=== PATIENT | male | born 1960 | race Caucasian/White ===

== ENCOUNTER → 2017-12-19 09:53 | Outpatient (CLI) | payer OTHER, SELFPAY ==
[2017-12-19 12:26] LABS: ALB/GLOB Ratio 1.2 RATIO (0.9-2.4); AST(SGOT) 37 U/L (15-37); Alanine Aminotransfer ALT/SGPT 63 U/L (16-61); Alkaline Phosphatase 70 U/L (45-117); Anion Gap 8 (5-15); BUN 14 mg/dL (7-18); BUN/Creat Ratio 16.3 RATIO (10-20); Calcium,Total 8.7 mg/dL (8.5-10.1); Chloride 104 mmol/L (98-107); Cholesterol 196 mg/dL (200); Creatinine, Serum 0.86 mg/dL (0.70-1.30); EST Glomerular Filtration Rate 97 mL/min (>60); Est Glom Filt Rate - Afr Amer 117 mL/min (>60); Globulin 3.4 g/dL (2.2-4.2); Glucose 89 mg/dL (74-106); High Density Lipoprotein 49 mg/dL; Potassium 3.8 mmol/L (3.5-5.1); Protein, Total 7.4 g/dL (6.4-8.2); Sodium Level 139 mmol/L (136-145); Thyroid Stim Hormone (TSH) 2.94 uIU/mL (0.358-3.74); Triglycerides 94 mg/dL; Very Low Density Lipoprotein 19 mg/dL (5-40)
== END ==
PROVIDERS: Family Provider Family Medicine; PCP Family Medicine; Visit Provider Family Medicine
DX: I10 Essential (primary) hypertension (principal); E03.9 Hypothyroidism, unspecified
CPT/HCPCS: 36415; 80053; 80061; 84443

== ENCOUNTER → 2018-05-05 12:32 | Outpatient (CLI) | payer OTHER, SELFPAY ==
--- NOTE | 2018-05-05 12:39 | RAD_ITS ---
STUDY: X-RAY - PELVIS AND RIGHT HIP REASON FOR EXAM: Male, 58 years old. Right hip pain. No known injury. TECHNIQUE: Radiological exam, hip, unilateral, with pelvis when performed; 2 or 3 views. COMPARISON: None. FINDINGS: There is a non-specific bowel gas pattern. Normal visualized soft tissue structures. Degenerative arthroses suggested the lower most lumbar facet articulations. There is narrowing with cortical sclerosis of the bilateral sacroiliac joints, consistent with degenerative osteoarthritic changes. Mild cortical and enthesophytes of the lateral iliac wings. Normal visualized sacrum. Normal bilateral superior and inferior pubic rami. Normal pubic symphysis. Normal bilateral ischial tuberosities. Normal visualized femoral head. There is osteoarthritic spur formation of the acetabular rim. Normal hip joint. RAD/Hip 2-3 Views with Pelvis IMPRESSION: 1. Degenerative spurring of the lateral right acetabular rim. 2. Degenerative changes in the lower lumbar facet joints and sacroiliac joints. Electronically Signed: Marek Arthur MD at 19:41 EDT , Service support ,
== END ==
PROVIDERS: Family Provider Family Medicine; PCP Family Medicine; Visit Provider Family Medicine
DX: M25.551 Pain in right hip (principal)
CPT/HCPCS: 73502

== ENCOUNTER 2018-05-20 15:49 | Outpatient (RCR) | payer OTHER, SELFPAY ==
--- NOTE | 2018-05-20 17:15 | HP.PTEVAL_ITS ---
Patient's Visit Information ANTONIO MCKNIGTH is a 58 year old M referred to Physical Therapy by Alexis Arteaga with a diagnosis of RIGHT HIP PAIN. Date of Evaluation: 05/20/18 Physical Therapist: Antonio Andrea, PT, - Visit Plan Frequency: 2x /Week Duration: 3 Weeks Plan: STRETCHING HIP,STRENGTHENING HIP ,MODALITIES. PATIENT WILL TRY EX'S ON OWM FOR MONTH - Subjective Subjective: This 58 y/o male presnets to physical therapy with right hip pain for 2 months. Intially,symptoms intermmitant but currently more constant.Desrcibed ache then sharp stabbing pain with walking.standing affecting [employer]'S job demands.Location loacted lateral hip hip. Dr gauthier xrays showed bone spurs. Patient can sleep at night. Pain is affected from squatting/ lifting. Denies parathesia/tingling. VOCATION: [employer]. SOCAIL: - Pain Right Hip Pain Intensity (Out of 10): 3 Pain Intensity Range: 10 - Objective POSTURE: WFL. GAIT: normal ken. NEURO: denies parathesia/tingling , intact. AROM: hip flexion 115 degrees, abd 45 degrees ,ER 50 ,IR 30 degrees. FLEXABLITY: hams min ,piriformis. MMT: quads/ham 4/5 ,hip flexion 4/5,hip abd 4 -/5 pain - Special Tests R Hip Scour: Negative R Hip Quadrant - Intraarticular Pathology: Negative R Hip GABI - Intraarticular Pathology: Positive R Hip Impingement Provocation - Labrum: Negative R Hip Trendelenberg - Glut Medius: Negative R Hip Linda - IT Band: Negative - Goals Goal 1:: Independant with HEP Goal Time Frame: 2-4 Weeks Goal 2:: Decrease hip pain by 50% with functional activities and job demands Goal Time Frame: 2-4 Weeks Goal 3:: Patient improve right glut medius strength 4/5 with no pain Goal Time Frame: 2-4 Weeks Goal 4:: Patient be able to perform ADL'S and job demands with no limitations - Rehabilitation Potential Physical Therapy Diagnosis: This patient has right hip pain with weakness of right glut medius with pain thus benifit from skilled PT Rehabilitation Potential: Good - Anticipated Interventions Patient/Client Instruction: Educate patient on: Condition, Plan of Care For the Purpose of:: To decrease pain, To increase ROM, To improve nutrient delivery to tissue, To increase oxygenation perfusion, To improve muscle performance and motor function, To increase tolerance to activity/condition/ position, To improve ability of physical actions for home/community/work/leisure , To improve gait and locomotor functions, To improve health of tissue, To increase flexibility/ROM, To reduce risk of recurrence Therapeutic Exercise to Include: Strength training, Postural training, Flexibilty training, Passive ROM, Active ROM Comment: HIP For the Purpose of:: To decrease pain, To increase ROM, To improve muscle performance and motor function, To improve ability of physical actions for home/ community/work/leisure, To improve health of tissue, To decrease soft tissue restriction, To increase flexibility/ROM, To reduce risk of recurrence TENS: Yes IF ES: Yes Cryotherapy (ice pack, ice massage): Yes Thermo therapy (hot pack): Yes Ultrasound (thermal/non thermal): Yes For the Purpose of:: To decrease pain, To increase ROM, To improve nutrient delivery to tissue, To increase oxygenation perfusion, To improve health of tissue, To decrease soft tissue restriction Thank you for the opportunity to evaluate your patient. For Medicare and Medicare HMO plans, please review the plan of care and approve it. It will need to be FAXED BACK to us at [phone] for Medicare purposes. Please let me know if there are questions or concerns regarding this plan of care. Physician Signature: Date:
--- NOTE | 2018-07-31 13:40 | HP.PTDCNRP_ITS ---
HP - Discharge Summary (1) - Patient Information ANTONIO Leon MERCEDESALCIDES was seen in my office for initial evaluation on 05/20/18. The following Plan of Care was established for this patient: Initial Frequency: 2x /Week Initial Duration: 3 Weeks - Anticipated Interventions Patient/Client Instruction: Educate patient on: Condition, Plan of Care For the Purpose of:: To decrease pain, To increase ROM, To improve nutrient delivery to tissue, To increase oxygenation perfusion, To improve muscle performance and motor function, To increase tolerance to activity/condition/position, To improve ability of physical actions for marylou e/community/work/leisure, To improve gait and locomotor functions, To improve health of tissue, To increase flexibility/ROM, To reduce risk of recurrence Therapeutic Exercise to Include: Strength training, Postural training, Flexibilty training, Passive ROM, Active ROM For the Purpose of:: To decrease pain, To increase ROM, To improve muscle perfor franck and motor function, To improve ability of physical actions for home/community/work/leisure, To improve health of tissue, To decrease soft tissue restriction, To increase flexibility/ROM, To reduce risk of recurrence TENS: Yes IF ES: Yes Cryotherapy (ice pack, ice massage): Yes Thermo therapy (hot pack): Yes Ultrasound (thermal/non thermal): Yes For the Purpose of:: To decrease pain, To increase ROM, To improve nutrient delivery to tissue, To increase oxygenation perfusion, To improve health of tissue, To decrease soft tissue restriction This patient was last seen in our office . Pertinent comments regarding their Physical therapy will appear below: Patient was seen for PT for Intial Evaluation for hip pain with instruction in HEP At this point I will be discontinuing this patient from physical therapy. I would be happy to see this patient again in the future if found appropriate by the physician. Thank you! Antonio Andrea, PT,
== END 2018-05-20 19:00 | disposition home or self-care (01) ==
LOC: PT 15:49
PROVIDERS: Family Provider Family Medicine; PCP Family Medicine; Visit Provider Family Medicine
DX: M25.551 Pain in right hip (principal)
CPT/HCPCS: 97110; 97161

== ENCOUNTER → 2018-06-02 08:40 | Outpatient (CLI) | payer OTHER, SELFPAY ==
[2018-06-02 12:03] LABS: AST(SGOT) 27 U/L (15-37); Alanine Aminotransfer ALT/SGPT 55 U/L (16-61); Alkaline Phosphatase 67 U/L (45-117); Anion Gap 8 (5-15); BUN 15 mg/dL (7-18); Bilirubin, Direct 0.16 mg/dL (0.00-0.30); Calcium,Total 9.1 mg/dL (8.5-10.1); Chloride 105 mmol/L (98-107); Cholesterol 182 mg/dL (200); Creatinine, Serum 0.94 mg/dL (0.70-1.30); EST Glomerular Filtration Rate 88 mL/min (>60); Est Glom Filt Rate - Afr Amer 106 mL/min (>60); Globulin 3.4 g/dL (2.2-4.2); Glucose 92 mg/dL (74-106); High Density Lipoprotein 41 mg/dL; Potassium 4.4 mmol/L (3.5-5.1); Protein, Total 7.4 g/dL (6.4-8.2); Sodium Level 142 mmol/L (136-145); Thyroid Stim Hormone (TSH) 4.43 uIU/mL (0.358-3.74); Triglycerides 146 mg/dL; Very Low Density Lipoprotein 29 mg/dL (5-40)
[2018-06-02 12:38] LABS: Absolute Lymphocyte Count 1.77 X10^3/ul (0.83-4.51); Absolute Neutrophil Count 2.2 X10^3/uL (2.0-7.7); Basophil# 0.03 X10^3/uL; Basophil% 0.7 % (0-1); Eosinophil# 0.07 X10^3/uL; Eosinophils% 1.5 % (0-5); Hematocrit 45.5 % (40-54); Hemoglobin 15.7 g/dl (13.0-16.5); Lymphocyte # 1.77 X10^3/ul (4.0); Lymphocyte % 38.4 % (19-41); Mean Corp Hgb Conc 34.5 g/gl (32-36); Mean Corpuscular Hgb 32.8 pg (27.0-32.0); Mean Corpuscular Volume 95.2 fL (80-94); Mean Platelet Vol. 9.1 fl (6.2-12.0); Monocyte% 10.8 % (0-10); Neutrophil # 2.23 X10^3/uL (2.7-7.7); Neutrophil % 48.4 % (47-70); Platelet Count 180 K/mm3 (150-450); RBC Distribution Width CV 12.6 % (11.6-14.6); RBC Distribution Width SD 43.4 fl (35.1-43.9); Red Blood Count 4.78 M/mm3 (4.6-6.2); White Blood Count 4.6 K/mm3 (4.4-11.0)
[2018-06-02 12:46] LABS: POSITIVE COUNT NO; POSITIVE DIFFERENTIAL NO; POSITIVE MORPHOLOGY NO
== END ==
PROVIDERS: Family Provider Family Medicine; PCP Family Medicine; Visit Provider Family Medicine
DX: I10 Essential (primary) hypertension (principal); E03.9 Hypothyroidism, unspecified; N40.1 Benign prostatic hyperplasia with lower urinary tract symptoms; E78.1 Pure hyperglyceridemia
CPT/HCPCS: 36415; 80048; 80061; 80076; 84443; 85025

== ENCOUNTER → 2018-12-03 10:14 | Outpatient (CLI) | payer OTHER, SELFPAY ==
[2018-12-03 12:00] LABS: Hemoglobin 15.6 g/dl (13.0-16.5); Mean Corp Hgb Conc 35.5 g/gl (32-36); Mean Corpuscular Hgb 33.2 pg (27.0-32.0); Mean Corpuscular Volume 93.6 fL (80-94); Platelet Count 155 K/mm3 (150-450); RBC Distribution Width CV 12.3 % (11.6-14.6); RBC Distribution Width SD 41.3 fl (35.1-43.9); White Blood Count 3.9 K/mm3 (4.4-11.0)
[2018-12-03 12:06] LABS: Scan Indicated on CBC? Y/N NO
[2018-12-03 12:38] LABS: ALB/GLOB Ratio 1.1 RATIO (0.9-2.4); AST(SGOT) 29 U/L (15-37); Alanine Aminotransfer ALT/SGPT 57 U/L (16-61); Albumin, Serum 3.9 g/dL (3.2-5.0); Alkaline Phosphatase 63 U/L (45-117); Anion Gap 8 (5-15); BUN 14 mg/dL (7-18); BUN/Creat Ratio 14.2 RATIO (10-20); Bilirubin, Direct 0.18 mg/dL (0.00-0.30); Calcium,Total 8.5 mg/dL (8.5-10.1); Chloride 105 mmol/L (98-107); Cholesterol 197 mg/dL (200); Creatinine, Serum 0.99 mg/dL (0.70-1.30); EST Glomerular Filtration Rate 82 mL/min (>60); Est Glom Filt Rate - Afr Amer 99 mL/min (>60); Globulin 3.4 g/dL (2.2-4.2); Glucose 92 mg/dL (74-106); High Density Lipoprotein 47 mg/dL; Potassium 4.2 mmol/L (3.5-5.1); Protein, Total 7.3 g/dL (6.4-8.2); Sodium Level 139 mmol/L (136-145); Thyroid Stim Hormone (TSH) 2.02 uIU/mL (0.358-3.74); Triglycerides 138 mg/dL; Very Low Density Lipoprotein 28 mg/dL (5-40)
== END ==
PROVIDERS: Family Provider Family Medicine; PCP Family Medicine; Referring Provider Family Medicine; Visit Provider Family Medicine
DX: I10 Essential (primary) hypertension (principal); E78.1 Pure hyperglyceridemia; E03.9 Hypothyroidism, unspecified
CPT/HCPCS: 36415; 80053; 80061; 82248; 84443; 85027

== ENCOUNTER → 2019-03-30 | Outpatient (CLI) | payer OTHER, SELFPAY ==
--- NOTE | 2019-03-30 15:25 | RAD_ITS ---
STUDY: X-RAY CHEST REASON FOR EXAM: Male, 59 years old. Cough 6-8 weeks TECHNIQUE: Frontal and lateral views of the chest. COMPARISON: 03/02/15. FINDINGS: There is hyperinflation of the lungs consistent with chronic obstructive lung disease (COPD). No infiltrates or effusions. There is no demonstrated pleural abnormality. Normal size heart. Normal mediastinum and janie. Normal visualized pulmonary arteries. Normal visualized aortic arch and descending thoracic aorta. Normal visualized thoracic spine. Normal visualized ribs, clavicles, and shoulders. There is no demonstrated abnormality of the visualized soft tissue structures of the upper abdomen. RAD/Chest PA and Lateral IMPRESSION: There are findings consistent with COPD. There is no evidence of acute chest disease. Electronically Signed: Darrell Samaniego MD at 17:43 EDT , Service support ,
== END | disposition home or self-care (01) ==
LOC: MTRAD 15:24
PROVIDERS: Family Provider Family Medicine; PCP Family Medicine; Referring Provider Nurse Practitioner Adult Health; Visit Provider Nurse Practitioner Adult Health
DX: R05 Cough (principal)
CPT/HCPCS: 71046

== ENCOUNTER → 2019-06-11 09:00 | Outpatient (CLI) | payer OTHER, SELFPAY ==
[2019-06-11 11:03] LABS: Anion Gap 6 (5-15); BUN 19 mg/dL (7-18); BUN/Creat Ratio 19.3 RATIO (10-20); Calcium,Total 8.9 mg/dL (8.5-10.1); Chloride 105 mmol/L (98-107); Cholesterol 185 mg/dL (200); Creatinine, Serum 0.98 mg/dL (0.70-1.30); EST Glomerular Filtration Rate 83 mL/min (>60); Est Glom Filt Rate - Afr Amer 100 mL/min (>60); Glucose 93 mg/dL (74-106); High Density Lipoprotein 44 mg/dL; Potassium 3.9 mmol/L (3.5-5.1); Sodium Level 139 mmol/L (136-145); Thyroid Stim Hormone (TSH) 3.79 uIU/mL (0.358-3.74); Triglycerides 148 mg/dL; Very Low Density Lipoprotein 30 mg/dL (5-40)
== END ==
PROVIDERS: Family Provider Family Medicine; PCP Family Medicine; Referring Provider Family Medicine; Visit Provider Family Medicine
DX: I10 Essential (primary) hypertension (principal); E03.9 Hypothyroidism, unspecified
CPT/HCPCS: 36415; 80048; 80061; 84443

== ENCOUNTER → 2019-09-10 | Outpatient (CLI) | payer OTHER, SELFPAY ==
[2019-09-10 13:45] LABS: Anion Gap 8 (5-15); BUN 15 mg/dL (7-18); Calcium,Total 8.8 mg/dL (8.5-10.1); Chloride 105 mmol/L (98-107); Creatinine, Serum 0.94 mg/dL (0.70-1.30); EST Glomerular Filtration Rate 87 mL/min (>60); Est Glom Filt Rate - Afr Amer 106 mL/min (>60); Glucose 83 mg/dL (74-106); PSA,Total - Annual Screen 1.91 ng/mL (0.00-4.00); Sodium Level 140 mmol/L (136-145); Thyroid Stim Hormone (TSH) 2.56 uIU/mL (0.358-3.74)
== END | disposition home or self-care (01) ==
LOC: MTLAB 11:09
PROVIDERS: Family Provider Family Medicine; PCP Family Medicine; Referring Provider Family Medicine; Visit Provider Family Medicine
DX: E03.9 Hypothyroidism, unspecified (principal); I10 Essential (primary) hypertension; Z12.5 Encounter for screening for malignant neoplasm of prostate
CPT/HCPCS: 36415; 80048; 84153; 84443; G0103

== ENCOUNTER → 2020-06-09 11:40 | Outpatient (CLI) | payer OTHER, SELFPAY ==
[2020-06-09 15:29] LABS: Anion Gap 6 (5-15); BUN 13 mg/dL (7-18); BUN/Creat Ratio 14.6 RATIO (10-20); Chloride 103 mmol/L (98-107); Creatinine, Serum 0.89 mg/dL (0.70-1.30); EST Glomerular Filtration Rate 92 mL/min (>60); Est Glom Filt Rate - Afr Amer 111 mL/min (>60); Glucose 86 mg/dL (74-106); Potassium 3.7 mmol/L (3.5-5.1); Sodium Level 137 mmol/L (136-145); Thyroid Stim Hormone (TSH) 4.18 uIU/mL (0.358-3.74)
== END ==
PROVIDERS: PCP Family Medicine; Referring Provider Family Medicine; Visit Provider Family Medicine
DX: I10 Essential (primary) hypertension (principal); E03.9 Hypothyroidism, unspecified
CPT/HCPCS: 36415; 80048; 84443

== ENCOUNTER → 2020-12-25 09:03 | Outpatient (CLI) | payer OTHER, SELFPAY ==
[2020-12-25 10:51] LABS: ALB/GLOB Ratio 1.2 RATIO (0.9-2.4); AST(SGOT) 34 U/L (15-37); Alanine Aminotransfer ALT/SGPT 71 U/L (16-61); Alkaline Phosphatase 60 U/L (45-117); Anion Gap 5 (5-15); BUN 19 mg/dL (7-18); BUN/Creat Ratio 19.2 RATIO (10-20); Calcium,Total 9.1 mg/dL (8.5-10.1); Chloride 103 mmol/L (98-107); Creatinine, Serum 0.99 mg/dL (0.70-1.30); EST Glomerular Filtration Rate 81 mL/min (>60); Est Glom Filt Rate - Afr Amer 99 mL/min (>60); Globulin 3.3 g/dL (2.2-4.2); Glucose 89 mg/dL (74-106); Potassium 4.2 mmol/L (3.5-5.1); Protein, Total 7.3 g/dL (6.4-8.2); Sodium Level 136 mmol/L (136-145)
[2020-12-27 11:11] LABS: Cholesterol 198 mg/dL (200); High Density Lipoprotein 41 mg/dL; T4 Free Direct 1.15 ng/dL (0.76-1.46); Triglycerides 176 mg/dL; Very Low Density Lipoprotein 35 mg/dL (5-40)
[2020-12-27 13:48] LABS: SARS-COV-2 TOTAL ABS Nonreactive (Nonreactive)
== END ==
PROVIDERS: PCP Family Medicine; Referring Provider Family Medicine; Visit Provider Family Medicine
DX: I10 Essential (primary) hypertension (principal); E78.1 Pure hyperglyceridemia; E03.9 Hypothyroidism, unspecified; Z11.52 Encounter for screening for COVID-19
CPT/HCPCS: 36415; 80053; 80061; 84439; 84443; 86769

== ENCOUNTER → 2021-01-09 11:41 | Outpatient (CLI) | payer OTHER, SELFPAY ==
--- NOTE | 2021-01-09 21:10 | STRESSREP_ITS ---
Stress Test Report Date: 01-09-2021 Procedure: Exercise tolerance test Indications: Chest pain Consent: Per the patient Procedure: The patient exercised on a Jovany protocol for 9 minutes completing stage III achieving a peak heart rate of 146 bpm (91% predicted maximal heart rate) with a peak blood pressure 158/78 mmHg and a peak MET capacity of approximately 10 MET's. The baseline ECG demonstrated normal sinus rhythm. The peak exercise ECG demonstrated approximately 1 to 2 mm of horizontal/downsloping ST segment depression in leads II, III, aVF, and V4 through V6 with gradual resolution towards baseline in recovery. There were no cardiac dysrhythmias pretest, during exercise, or recovery. The functional capacity was considered good. The patient had no complaint of chest discomfort during exercise or recovery. The examination was discontinued secondary to dyspnea and fatigue. Impression: 1. Technically adequate (percent predicted maximal heart rate greater than 85%) exercise tolerance test 2. Abnormal ECG exercise tolerance test: Peak exercise ECG with approximately 1 to 2 mm of horizontal/downsloping ST segment depression in leads II, III, aVF, and V4 through V6 with gradual resolution towards baseline in recovery 3. There were no cardiac dysrhythmias during exercise or recovery This note was generated with [employer] software. It may contain incorrect words, spelling, and punctuation that were not noted in checking the note before signing.
== END ==
PROVIDERS: PCP Family Medicine; Referring Provider Family Medicine; Visit Provider Family Medicine
DX: R07.9 Chest pain, unspecified (principal)
CPT/HCPCS: 93017

== ENCOUNTER → 2021-03-02 12:07 | Outpatient (CLI) | payer OTHER, SELFPAY ==
[2021-02-22 15:55] VITALS: BMI 22.7
[2021-03-02 12:28] VITALS: BP 159/97; PULSE 68; RESP 16; O2SAT 98; BMI 22.4
--- NOTE | 2021-03-02 12:35 | CT_ITS ---
STUDY: CT CHEST WITH T WITHOUT CONTRAST REASON FOR EXAM: Male, 61 years old. CHEST PAIN RADIATION DOSAGE (If Supplied By Facility): CTDIvol = ( 26.57 ) mGy, DLP = ( 1294.42 ) mGycm TECHNIQUE: Transaxial imaging was performed pre-and post contrast administration of IV 100mL Isovue-370. CTA coronary and coronary artery scoring reported separately. Report provided only for Overread purposes. Individualized dose optimization techniques were used for this CT. COMPARISON: None. FINDINGS: The lungs are normal. There is no demonstrated pleural abnormality. Normal heart and pericardium. There is moderate cardiac enlargement. Normal mediastinum. Normal hilar regions. Normal enhanced and unenhanced pulmonary arteries. Normal aorta arch and descending thoracic aorta. Normal osseous structures. There is no demonstrated abnormality of the visualized upper abdomen. CT/Limited Chest CT w/CCTA IMPRESSION: No intrathoracic adenopathy or pulmonary nodule/mass. Electronically Signed: Abran Eid MD ([place]) at 11:41 EDT , Service support ,
[2021-03-02 12:46] LABS: CREATININE FINGERSTICK 1.1 mg/dL (0.70-1.30); EGFR FINGERSTICK > 60.0000 mL/min (>60)
[2021-03-02 12:50] VITALS: BP 159/97; PULSE 58
[2021-03-02] MEDS: Nitroglycerin SL (ED/IMG/CATH) 0.4 MG TABLET SL (12:50)
[2021-03-02 13:02] VITALS: BP 130/90
--- NOTE | 2021-03-02 13:02 | ECHOD_ITS ---
Reason For Study: Chest pain Procedure This was a 2D Doppler, Color Flow transthoracic echocardiogram. The exam was of adequate technical quality. Exam performed in department. Left Ventricle Normal LV size. Left ventricular systolic function is normal. The estimated ejection fraction is 60 %. No evidence for diastolic dysfunction. No regional wall motion abnormalities noted. Right Ventricle Normal RV size. Normal systolic function. Atria Normal left atrium. Normal right atrium. No doppler evidence for ASD. Mitral Valve There is no mitral annular calcification. Normal mitral valve. Trivial mitral valve insufficiency. Tricuspid Valve Normal tricuspid valve. Mild tricuspid valve insufficiency. Right ventricular systolic pressure estimated to be 22 mmHg. Aortic Valve Trisinus/trileaflet aortic valve. Mild diffuse aortic valve thickening. Pulmonic Valve The pulmonic valve is not well visualized. Trivial pulmonic valve insufficiency. Great Vessels Normal sized aortic root. Pericardium/Pleural No pericardial effusion. MMode/2D Measurements & Calculations LVIDd: 4.1 cm IVSd: 1.1 cm Ao root diam: 3.0 cm LVIDs: 2.4 cm LVPWd: 1.1 cm RVDd: 3.7 cm FS: 40.9 % LAV(MOD-bp): 48.4 ml LVAd ap4: 28.2 cm2 LVAd ap2: 29.7 cm2 LAV(MOD-bp) Indexed: 26.3 ml/m2 LVLd ap4: 8.6 cm LVLd ap2: 9.1 cm LAV(MOD-sp2): 54.5 ml EDV(MOD-sp4): 74.6 ml EDV(MOD-sp2): 80.7 ml LAV(MOD-sp4): 40.1 ml EDV(sp4-el): 78.6 ml EDV(sp2-el): 82.2 ml LVAs ap4: 14.2 cm2 LVAs ap2: 16.3 cm2 LVLs ap4: 7.4 cm LVLs ap2: 7.7 cm ESV(MOD-sp4): 23.0 ml ESV(MOD-sp2): 30.3 ml ESV(sp4-el): 23.2 ml ESV(sp2-el): 29.3 ml EF(MOD-sp4): 69.1 % EF(MOD-sp2): 62.4 % EF(sp4-el): 70.4 % SV(MOD-sp4): 51.6 ml SV(MOD-sp2): 50.3 ml SV(sp4-el): 55.3 ml LA dimension(2D): 3.6 cm LA A4 area: 16.3 cm2 RA A4 area: 15.3 cm2 Doppler Measurements & Calculations MV E max alex: 69.1 cm/sec Lat Peak E' Alex: 11.5 cm/sec Med Peak E' Alex: 8.1 cm/sec MV A max alex: 72.5 cm/sec E/E' lat: 6.0 E/E' med: 8.6 MV E/A: 0.95 Ao V2 max: 133.8 cm/sec LV V1 max: 103.0 cm/sec PA V2 max: 72.3 cm/sec Ao max P.2 mmHg LV V1 max P.2 mmHg TR max alex: 216.9 cm/sec TR max P.8 mmHg ECHO/Echo Complete Interpretation Summary Left ventricular systolic function is normal. The estimated ejection fraction is 60 %. Trivial mitral valve insufficiency. Mild tricuspid valve insufficiency. Mild diffuse aortic valve thickening. Trivial pulmonic valve insufficiency. Right ventricular systolic pressure estimated to be 22 mmHg. No evidence for diastolic dysfunction. Ordering Physician: Ben Martínez Referring Physician: Alexis Arteaga MD Performed By: Samnatha Blake RDCS
--- NOTE | 2021-03-02 13:02 | NURSING ---
IV LEFT IN PLACE AND PT WALKED TO [facility] FOR ECHO.
--- NOTE | 2021-03-02 18:48 | CA.SCORE ---
Calcium Scoring Date of Study:: 03/02/21 Coronary Calcium Scoring: High-resolution Computed Tomographic imaging of the chest was performed on 03-02-2021, with particular attention paid to the coronary arteries. Images from the examination were analyzed for the presence and extent of coronary artery calcification , using coronary calcium quantification software. The patient tolerated the procedure well and there were no complications. The results of the coronary calcification analysis are provided below. Findings Coronary Artery Left Main (LM): 99.3 Left Anterior Descending (LAD): 0 Left Circumflex (LCX): 0 Right Coronary Artery (RCA): 172 Total Agatston Score: 271.3 Percentile Ranking: According to prepublished reference tables between 50% and 75% of people the same gender/similar age had the same or lower score Calcium Scoring Interpretation: 0 No identifiable atherosclerotic plaque. Very low cardiovascular disease risk. <5% chance of presence coronary artery disease A Negative Examination 1-10 Minimal Plaque burden. Significant coronary artery disease very unlikely. 11-100 Mild plaque burden. Likely mild or minimal coronary atherosclerosis. 101-400 Moderate plaque burden Moderate non-obstructive coronary artery disease highly likely. Over 400 Extensive plaque burden. High likelihood of at least one significant coronary stenosis (>50% diameter) Calcium Score: 101 - 400 Moderate non-obstructive coronary artery disease highly like Conclusion: Continue cardiovascular evaluation and care as deemed appropriate.
--- NOTE | 2021-03-02 18:50 | CCTA_ITS ---
CCTA w/Cont Coronary Arteries Technique: High-resolution Computed Tomographic imaging of the chest was performed on 03-02-2021, with particular attention paid to the coronary arteries. Images from the examination were analyzed for the presence and extent of coronary artery calcification , using coronary calcium quantification software. The patient t olerated the procedure well and there were no complications. The results of the coronary calcification analysis are provided below. Dominance: Possible codominant system LEFT MAIN CORONARY ARTERY: The left main coronary artery appears to give rise to the left circumflex coronary artery. It appears to demonstrate moderate nonobstructive calcified plaque. LEFT ANTERIOR DESCENDING CORONARY ARTERY: The left anterior descending coronary artery appears to arise near the ostium the right coronary artery and courses anterior to the pulmonary artery to the left ventricular anterior wall. The LAD appears to demonstrate proximal mild nonobstructive calcified plaque. LEFT CIRCUMFLEX CORONARY ARTERY: Circumflex coronary artery demonstrate proximal moderate nonobstructive calcified plaque in the mid mild nonobstructive calcified plaque and mild nonobstructive soft plaque. RIGHT CORONARY ARTERY: The right coronary artery appears to demonstrate proximal moderate to severe nonobstructive calcified plaque and proximal mild to moderate nonobstructive soft plaque. THORACIC AORTA: The thoracic aorta appears to be without obvious angiographically significant appearing findings. PULMONARY ARTERY: The pulmonary artery with respect to the main pulmonary artery the proximal portions of the right and left pulmonary artery appear to be patent with no obvious angiographic filling defects. LEFT ATRIUM/APPENDAGE: The left atrium/appendage appears to be patent with no obvious angiographic filling defects. MITRAL VALVE: The mitral valve appears to be a bileaflet valve. AORTIC VALVE: The aortic valve appears to be a trileaflet valve. LEFT VENTRICLE: The left ventricle appears to demonstrate grossly normal left ventricular size, wall motion, and systolic function. The reported LVEF is 78%. CORONARY CALCIUM SCORE: The coronary calcium score was reported at 271. According to prepublished reference tables this would be compatible with moderate plaque burden with m oderate nonobstructive coronary artery disease highly likely. 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
== END ==
PROVIDERS: PCP Family Medicine; Referring Provider Internal Medicine Cardiovascular Disease; Visit Provider Internal Medicine Cardiovascular Disease
DX: R07.2 Precordial pain (principal); R94.39 Abnormal result of other cardiovascular function study; I10 Essential (primary) hypertension
CPT/HCPCS: 75571; 75574; 76380; 93306; Q9967

== ENCOUNTER 2021-05-03 13:44 | Emergency (ER) | payer OTHER, SELFPAY ==
[2021-03-02 12:28] VITALS: BMI 22.4
[2021-05-03 13:46] VITALS: BP 157/109; PULSE 86; RESP 20; TEMP 36.1; O2SAT 98; BMI 22.1
[2021-05-03 14:02] VITALS: BP 148/99; PULSE 82; RESP 24; O2SAT 97
--- NOTE | 2021-05-03 14:23 | EDS_ITS ---
HPI History of Present Illness Chief Complaint: Chest Pain Informant: patient Onset/Context/Timing Onset: Yesterday Activity at onset: gradual Timing: Intermittent and Lasts (20 to 30 minutes) Quality: Positive for Dull Location: Left Parasternal Worsened By: Nothing Relieved By: Nothing Associated Symptoms: Positive for Dyspnea and Lightheadedness; Negative for Nausea, Vomiting, Diaphoresis, Cough, Fever, Acid Reflux and Palpitations Narrative Narrative: Patient presents with chest pain that has been intermittent since yesterday. Patient states it is gradually gotten worse. Patient describes the pain is dull. Patient states the pain lasts approximately 20 to 30 minutes. Patient states the pain is over the left chest area. Patient states nothing makes it better nothing makes it worse. Patient states he had 3 stents placed on 04/11/2021 at [facility]. Patient states he also feels dizzy and lightheaded. Patient states it feels like he will pass out if he stands up too quickly. Patient also admits to some shortness of breath. CVD Risk Factors: Positive for Hypertension; Negative for Diabetes, Hypercholesterolemia, Family History 1' </=55 and Smoking PE Risk Factors: Positive for Recent Travel/Surgery and Cancer; Negative for Recent Immobilization, Prior DVT or PE and OCP + Smoking + >/=35 [facility] Medical History (Updated 05/03/21 @ 17:[address] Mikey Garcia, ) Abnormal cardiac CT angiography Abnormal stress test Atherosclerotic heart disease of [place] coronary artery without angina pectoris Chest pain Congenital coronary artery anomaly Essential hypertension Hypothyroidism Presence of stent in coronary artery (~04/11/21) Home Medications aspirin 81 mg tablet,delayed release 162 mg PO DAILY 02/22/21 [History Last Taken Unknown] diltiazem HCl 360 mg tablet,extended release 24 hr 360 mg PO DAILY 02/22/21 [History Last Taken Unknown] lansoprazole 30 mg delayed release,disintegrating tablet 30 mg PO DAILY 02/22/21 [History Last Taken Unknown] levothyroxine 137 mcg tablet 137 mcg PO DAILY 02/22/21 [History Last Taken Unknown] losartan 100 mg tablet 100 mg PO DAILY 02/22/21 [History Last Taken Unknown] milk thistle 200 mg capsule 480 mg PO DAILY cap 02/22/21 [History Last Taken Unknown] ujikvxae-viv-pixbw acid 0.4 mg-lycopene 300 mcg-lutein 250 mcg tablet 1 tablet PO DAILY 02/22/21 [History Last Taken Unknown] clopidogrel 75 mg tablet 75 mg PO DAILY #90 tab 05/03/21 [Rx Last Taken Unknown] Allergy/AdvReac Type Severity Reaction Status Date / Time No Known Allergies Allergy Unverified 05/03/21 13:45 Family History Mother Hypertension Father Diabetes Surgical History (Updated 05/03/21 @ 14:[address] Mikey Garcia DO) History of arthroscopy of right shoulder History of heart artery stent Presence of coronary angioplasty implant and graft (~04/11/21) S/P skin cancer resection Social History Smoking Status: Never smoker alcohol intake: current details: 1-2 day substance use type: marijuana caffeine: Yes Type: coffee Number of servings: 1 ROS ROS ED Constitutional Constitutional ED: Denies chills or fever(s) Eyes Eyes: Denies blurry vision or change in vision ENT ENT ED: Denies rhinorrhea or sore throat Cardiovascular Cardiovascular: Reports chest pain; Denies palpitations Respiratory/Chest Respiratory/Chest: Reports dyspnea; Denies cough Gastrointestinal Gastrointestinal: Reports nausea; Denies abdominal pain or vomiting Genitourinary Genitourinary ED: Denies dysuria or hematuria Musculoskeletal Musculoskeletal: Denies back pain or neck pain Integumentary Denies abscess or rash Neurologic Neurologic: Denies headache(s) or weakness Allergic/Immunologic Allergic/Immunologic ED: Denies mouth swelling or urticaria EXAM Physical Exam Const Vital Signs: 05/03/21 13:46 05/03/21 14:02 05/03/21 14:40 Temperature 97 F L Temperature Source Temporal Pulse Rate 86 82 Respiratory Rate 20 H 24 H Respiratory Effort Normal Non-Labored Respiratory Pattern Normal Blood Pressure 157/109 H 148/99 H Blood Pressure Mean 125 115 Pulse Ox 98 97 Oxygen Delivery Method Room Air Room Air 05/03/21 15:00 05/03/21 16:00 Temperature Temperature Source Pulse Rate 80 86 Respiratory Rate 16 15 Respiratory Effort Respiratory Pattern Blood Pressure 136/91 H 143/91 H Blood Pressure Mean 106 108 Pulse Ox 99 99 Oxygen Delivery Method Room Air Room Air Positive well nourished and well developed General Appearance ED: well developed HEENT normocephalic and atraumatic Eyes PERRL and EOMs intact bilaterally Neck supple and no JVD Chest Wall palpation of chest normal Resp normal respiratory effort and clear to auscultation bilaterally Effort and Inspection: Negative for respiratory distress Cardio regular rate, regular rhythm and no murmurs GI normal to inspection, nondistended, normoactive bowel sounds, soft to palpation, non-tender and non-distended Extremity normal to inspection General Extremety ED: Negative for edema or tenderness General Extremity: Negative for edema Neuro oriented x3, CN's II-XII intact bilaterally and no sensory deficits noted Sensorium / Orientation: awake and alert Motor Exam: strength 5/5 throughout Psych mental status grossly normal Heart Score History: Slightly/Non-Suspicious ECG: Normal Age: >45 - <65 years Risk Factors: >/= 3 Risk Factors or History of CAD Troponin: </= Normal Limit Score: 3 MDM MDM MDM Narrative Medical decision making narrative: EKG was obtained. On my interpretation, it showed a normal sinus rhythm with occasional PVCs with a rate of 71. SC interval, QRS interval, and QTc intervals were all normal. [place] was normal. There are no acute ST or T wave changes. Portable 1 view chest x-ray was obtained. On my interpretation, lung mullen are clear. There is normal cardiac silhouette. Bony thorax is normal. There is no acute process noted. Radiologist also interpreted the x-ray and agrees. CBC and basic metabolic profile were within normal limits. D-dimer was normal. Troponin was normal initially. Repeat troponin was normal. Patient is feeling better on reevaluation. Patient has a HEART score of 3. Patient was instructed to follow-up with his primary care physician in 5 to 7 days. Patient understood and was agreeable with the plan. All questions were answered. Lab Data Attestation: I reviewed the patient's lab results. Labs: Laboratory Results - last 24 hr 05/03/21 05/03/21 05/03/21 14:45 14:45 15:00 WBC 5.4 RBC 4.65 Hgb 15.1 Hct 42.3 MCV 91.0 MCH 32.5 H MCHC 35.7 RDW Std Deviation 39.6 RDW Coeff of Evan 11.9 Plt Count 189 MPV 8.4 Immature Gran % (Auto) 0.200 Neut % (Auto) 53.9 Lymph % (Auto) 29.5 [place] % (Auto) 12.1 H Eos % (Auto) 2.6 Baso % (Auto) 1.7 H Absolute Neuts (auto) 2.9 Absolute Lymphs (auto) 1.58 Nucleated RBC % 0 D-Dimer Quant (PE/DVT) <= 0.27 Sodium 135 L Potassium 3.9 Chloride 100 Carbon Dioxide 25.0 Anion Gap 10 BUN 15 Creatinine 0.94 Estim Creat Clear Calc 78.41 Est GFR (MDRD) Af Amer 105 Est GFR (MDRD) Non-Af 87 BUN/Creatinine Ratio 16.0 Glucose 94 Calcium 9.0 Troponin I High Sens 3.7 05/03/21 16:50 WBC RBC Hgb Hct MCV MCH MCHC RDW Std Deviation RDW Coeff of Evan Plt Count MPV Immature Gran % (Auto) Neut % (Auto) Lymph % (Auto) [place] % (Auto) Eos % (Auto) Baso % (Auto) Absolute Neuts (auto) Absolute Lymphs (auto) Nucleated RBC % D-Dimer Quant (PE/DVT) Sodium Potassium Chloride Carbon Dioxide Anion Gap BUN Creatinine Estim Creat Clear Calc Est GFR (MDRD) Af Amer Est GFR (MDRD) Non-Af BUN/Creatinine Ratio Glucose Calcium Troponin I High Sens 5.2 Radiography Chest X-Ray - ED: 1 View, Read by ED Physician, Read by Radiologist and Normal Diagnostic Testing: Radiology Impression Chest X-Ray 05/03/21 14:39 IMPRESSION: Hyperinflation. Electronically Signed: Todd Farley MD at 15:18 EDT , Service support , EKG Initial EKG: Attestation: I personally reviewed and interpreted this EKG as follows: Interpretation: Sinus Rhythm (71) and No Acute Injury Pattern Prior EKG tracings: available for review Prior: Unchanged (02/22/2021) Discharge Plan Triage Chief Complaint: Chest Pain ED Provider: Mikey Garcia Dx/Rx/DC Orders Clinical Impression: Chest pain Instructions: ED Chest Pain, Uncertain Cause Prescriptions: No Action Centrum Silver 0.4-300-250 mg-mcg-mcg tablet 1 tablet PO DAILY RF: 0 diltiazem HCl [Cardizem LA] 360 mg tablet extended release 24 hr 360 mg PO DAILY RF: 0 losartan 100 mg tablet 100 mg PO DAILY RF: 0 lansoprazole 30 mg tablet,disintegrat, delay rel 30 mg PO DAILY RF: 0 aspirin [Adult Low Dose Aspirin] 81 mg tablet,delayed release (DR/EC) 162 mg PO DAILY RF: 0 levothyroxine 137 mcg tablet 137 mcg PO DAILY RF: 0 milk thistle 200 mg capsule 200 mg capsule 480 mg PO DAILY RF: 0 clopidogrel [Plavix] 75 mg tablet 75 mg PO DAILY Qty: 90 RF: 3 Primary Care Provider: Lopez Arteaga Referrals: Lopez Arteaga MD [Primary Care Provider] - 5-7 Days Disposition Disposition: Home, Self Care
--- NOTE | 2021-05-03 14:39 | EKG12_ITS ---
Test Reason : CHEST PAIN Blood Pressure : / mmHG Vent. Rate : 071 BPM Atrial Rate : 071 BPM P-R Int : 128 ms QRS Dur : 092 ms QT Int : 394 ms P-R-T Axes : 045 011 030 degrees QTc Int : 428 ms Sinus rhythm with occasional Premature ventricular complexes Otherwise normal ECG Confirmed by MAYLIN HUGGINS, ANI ([id number]), greeting card editor MARY REED ([id number]) on 05/04/2021 1:05:52 PM Referred By: YENIFER Confirmed By:ANI CARLISLE MD
--- NOTE | 2021-05-03 14:39 | RAD_ITS ---
STUDY: X-RAY CHEST REASON FOR EXAM: Male, 61 years old. Chest pain TECHNIQUE: Single AP portable view of the chest. COMPARISON: Comparison is made with prior examination of 03/30/2019. FINDINGS: EKG electrodes are seen. Hyperinflation. The lungs are clear. There is no demonstrated pleural abnormality. Normal size heart. Normal mediastinum and janie. Normal visualized pulmonary arteries. Normal visualized aortic arch and descending thoracic aorta. Normal visualized thoracic spine. Normal visualized ribs, clavicles, and shoulders. There is no demonstrated abnormality of the visualized soft tissue structures of the upper abdomen. RAD/Chest 1 View (Portable) IMPRESSION: Hyperinflation. Electronically Signed: Todd Farley MD at 15:18 EDT , Service support ,
[2021-05-03] MEDS: Aspirin 81 MG TAB.CHEW 162 MG PO (14:58)
[2021-05-03 14:59] LABS: Absolute Lymphocyte Count 1.58 X10^3/uL (0.83-4.51); Absolute Neutrophil Count 2.9 X10^3/uL (2.0-7.7); Basophil# 0.09 X10^3/uL; Basophil% 1.7 % (0-1); Eosinophil# 0.14 X10^3/uL; Eosinophils% 2.6 % (0-5); Hematocrit 42.3 % (40-54); Hemoglobin 15.1 g/dL (13.0-16.5); Lymphocyte # 1.58 X10^3/ul (0.83-4.51); Lymphocyte % 29.5 % (19-41); Mean Corp Hgb Conc 35.7 g/dL (32-36); Mean Corpuscular Hgb 32.5 pg (27.0-32.0); Mean Platelet Vol. 8.4 fl (6.2-12.0); Monocyte# 0.65 X10^3/uL; Monocyte% 12.1 % (0-10); NRBC Flagged by Analyzer 0 % (0-5); Neutrophil # 2.89 X10^3/uL (2.7-7.7); Neutrophil % 53.9 % (47-70); Platelet Count 189 K/mm3 (150-450); RBC Distribution Width CV 11.9 % (11.6-14.6); RBC Distribution Width SD 39.6 fl (35.1-43.9); Red Blood Count 4.65 M/mm3 (4.6-6.2); White Blood Count 5.4 K/mm3 (4.4-11.0)
[2021-05-03 15:00] VITALS: BP 136/91; PULSE 80; RESP 16; O2SAT 99
[2021-05-03 15:16] LABS: Anion Gap 10 (5-15); BUN 15 mg/dL (7-18); Chloride 100 mmol/L (98-107); Creatinine, Serum 0.94 mg/dL (0.70-1.30); EST Glomerular Filtration Rate 87 mL/min (>60); Est Glom Filt Rate - Afr Amer 105 mL/min (>60); Estimated Creatinine Clearance 78.41 ml/min; Glucose 94 mg/dL (74-106); Potassium 3.9 mmol/L (3.5-5.1); Sodium Level 135 mmol/L (136-145); Troponin-I HS 3.7 pg/mL (3.0-78.5)
[2021-05-03 15:38] LABS: D-Dimer Quantitative (DVT/PE) <= 0.27 FEU/ug/m (0.27-0.49)
[2021-05-03 16:00] VITALS: BP 143/91; PULSE 86; RESP 15; O2SAT 99
[2021-05-03 17:22] LABS: Troponin-I HS 5.2 pg/mL (3.0-78.5)
== END 2021-05-03 17:54 | disposition home or self-care (01) ==
PROVIDERS: Emergency Provider Emergency Medicine; PCP Family Medicine
DX: R07.9 Chest pain, unspecified (principal); I25.10 Atherosclerotic heart disease of native coronary artery without angina pectoris; I10 Essential (primary) hypertension; E03.9 Hypothyroidism, unspecified; Z95.5 Presence of coronary angioplasty implant and graft; Z79.899 Other long term (current) drug therapy
CPT/HCPCS: 71045; 80048; 84484; 85025; 85379; 93005; 99284; A4216

== ENCOUNTER → 2021-06-01 12:55 | Outpatient (CLI) | payer OTHER, SELFPAY ==
[2021-05-10 13:03] VITALS: BMI 22.4
--- NOTE | 2021-06-01 13:02 | CR.HP_ITS ---
CR - History & Physical - General Arrival date:: 06/01/21 Arrival time:: 13:02 Date of Referral:: 05/14/21 Date of CR Evaluation:: 06/01/21 Referring Physician: Dr. Ben Martínez Primary Diagnosis: PCI W/stenting - History of Present Cardiac Event Onset Date: Enter Onset Date of cardiac illnesses in Comment field below PTCA or coronary stenting:: Yes - 05/11/2021; malformation of coronary vessels Type of Symptoms:: non stress induced angina for a period of time. Began being awakened in the middle of the night much more noticable chest pain for a period of about [address] Arteaga sent me in for stress test. Abnormal stress test. Follow-up with stress echocardiogram and calcium scoring. Then sent down to [facility]. Heart cath at [facility] found the malformation of coronary vessels causing the vessels to pinch off, so had three stents put in versus coronary bypass grafting. Interventions with present event:: Radial procedure Heart cath and three stent placement. - Sleep Disorder Evaluation Hx of Sleep Apnea: No Do you snore loudly (louder than talking or can be heard through closed doors)?: Yes Do you often feel tired/ fatigued/ sleepy during daytime?: No Has anyone observed you stop breathing during sleep?: No History of Hypertension (for STOP score): Yes STOP Results: Positive - Medications Home Medications: Ambulatory Orders Medication Instructions Recorded aspirin 81 mg tablet,delayed 162 mg PO DAILY 02/22/21 release diltiazem HCl 360 mg 360 mg PO DAILY 02/22/21 tablet,extended release 24 hr lansoprazole 30 mg delayed 30 mg PO DAILY 02/22/21 release,disintegrating tablet levothyroxine 137 mcg tablet 137 mcg PO DAILY 02/22/21 losartan 100 mg tablet 100 mg PO DAILY 02/22/21 milk thistle 200 mg capsule 480 mg PO DAILY cap 02/22/21 imqrdwbx-huk-fpckw acid 0.4 1 tablet PO DAILY 02/22/21 mg-lycopene 300 mcg-lutein 250 mcg tablet clopidogrel 75 mg tablet 75 mg PO DAILY #90 tab 05/03/21 atorvastatin 80 mg tablet 80 mg PO QHS #90 tab 05/10/21 - Allergies Allergies/Adverse Reactions: Allergies No Known Allergies Allergy (Unverified 05/10/21 13:19) Advanced Directives - Advanced Directives Power of Solution Mixer: Yes Living Will: Yes Advance Directives Information Provided: Yes Advance Directives on File: No - Through Dr. Arteaga office but not sure about the hospital. DNR Order?:: No - MOLST See MOLST form: No Past Medical History - Covid-19 Screening Fever: No Unexplained muscle aches: No Current respiratory symptoms: No Upper respiratory infections symptoms: No Gastro-intestinal symptoms: No Aci-Hjsg-Nzjjev symptoms: No Has tested positive for COVID-19 in last 30 days: No Date of testin01/08/21 - [employer] vaccine Had contact w/person w/symptoms or Covid-19 (+) last 14 days: No Has High Risk Exposures ID'd by Health dept/Inf Control team: No 65 years or older:: No Lives in Assisted Living facility:: No Has a chronic lung disease or moderate to severe asthma:: No Has a serious heart condition:: No Immunocompromised:: No Severely obese (Body Mass Index of 40 or higher):: No Diabetic:: No Has chronic kidney disease undergoing dialysis:: No Has liver disease:: No - Past Medical Illness Medical History: Past Medical History (Last Updated 05/10/21 @ 13:47 by Rafaela Dominguez PA, PA) Abnormal cardiac CT angiography R93.1 Abnormal stress test R94.39 Atherosclerotic heart disease of [place] coronary artery without angina pectoris I25.10 Chest pain R07.9 Congenital coronary artery anomaly Q24.5 Essential hypertension I10 Hyperlipidemia E78.5 Hypothyroidism E03.9 Presence of stent in coronary artery Onset Date: ~04/11/21 Z95.5 PCI/ARNOLD of the mid OM1 branch of LCX and PCI/ARNOLD x2 overlapping of ostial/prox RI per cath 04/11/[address] [facility] [address] Navarro - Past Surgical History Surgical History: Past Surgical History (Last Reviewed 05/10/21 @ 13:17 by Consuelo Bolden) History of arthroscopy of right shoulder Z98.890 History of heart artery stent Z95.5 Presence of coronary angioplasty implant and graft Onset Date: ~04/11/21 Z95.5 PCI/ARNOLD of the mid OM1 branch of LCX and PCI/ARNOLD x2 overlapping of ostial/prox RI per cath 04/11/[address] [facility] [address] Navarro S/P skin cancer resection Z98.890 - Family History Summary Family History: Family History (Last Reviewed 05/10/21 @ 13:17 by Consuelo Bolden) Mother Hypertension Father Diabetes Social History - Smoking History Smoking Status: Never smoker Hx Tobacco Use: No Hx Smoking Exposure: No - Alcohol Use Alcohol Usage: No - Substance Abuse Hx Substance Use: Yes - Marijuana use occasionally. - Occupation Occupation (List type of work in comments):: Employed Hours worked per day:: 10 - varies, can work some remotely. - Hobbies, Recreation, Social Activities Hobbies: Other - Music; play instruments etc. Cooking, meteorology, cars. Social Environment - Status Marital Status: - Current Living Arrangements Living Environment:: Spouse - Children How many children do you have?: 1 Do any of your children live nearby?: Yes - Safety Do you feel safe in your surroundings?: Yes - Assistance Do you need any assistance at home?: No Review of Systems - Review of Systems Hints: Right click = Denies ([place]ash). Left click = Reports ([place]) Review of Present Symptoms: Reports: Appetite - Normal, Appetite - Special Diet - follows healthy diet, rarely eats red meatsmaybe once weekly. Very easily could be vegetarian but does do dairy products., Sleep - Normal. Denies: Shortness of Breath at Rest, Shortness of Breath with Exertion, Angina, Dizziness/Lightheadedness, Fatigue, Heart Arrhythmia/Irregularities, Sexual Changes - Pain Is Patient Pain Free?: Yes Pain Location: none Pain Level: 0/10 Risk Factor Assessment - Chief Complaint Chief Complaint: 61 yr old gentleman who presentst [facility] re[facility] today following recent PCI intervention at the [facility]. Pt was seen here at [facility] but due to maformation of his coronary vessels was sent to [facility]. - Vital Signs Temperature: 97.5 F Respiratory Rate: 14 Pulse Ox: 97 Blood Pressure: 124/68 - Pulse Pulse Rate: 60 Pulse Rhythm: Regular - Hypertension How long have you been treated?: Quite a while 8- 10 years maybe. On medication(s)?: Yes started on cardizem and the losartan Blood Pressure Sitting - Left Arm: 124/68 - Stress Stress: Work-related - Blood Cholesterol/Lipids Total Cholesterol (mg/dL) Goal = less than 200 mg/dL: 198 - 12/25/2020 HDL Cholesterol (mg/dL) Goal = less than 40 mg/dL: 41 LDL Cholesterol (mg/dL) Goal = less than 70 mg/dL: 122 Triglycerides (mg/dL) Goal = less than 150 mg/dL: 176 - Obesity Height: 5 ft 9 in Weight:: 152 lb Weight in Pounds: 152.0 lbs Weight Source: Acute Hospital Body Mass Index (BMI): 22.4 Nutritional Referral for Obesity: No - Physical Inactivity Physical Inactivity: Reg Exercise 30 min/day, Physically demanding job, Recreational activity - Risk Stratification Risk Guidelines: Lowest Risk: Risk Factor for Smoking, Risk Factor for Dyslipidemia, Risk Factor for Diabetes, Risk Factor for Obesity, Risk Factor for Sedentary Lifestyle, Risk Factor for Depression, Moderate Risk: Risk Factor for Hypertension - Family History Family History: Family History (Last Reviewed 05/10/21 @ 13:17 by Consuelo Bolden) Mother Hypertension Father Diabetes Motivation - Motivation to Participate On a scale of 1 to 10, how prepared are you to commit to attending program?: 7 What do you see as barriers to successfully being able to complete the program?: no What do you see as the benefits of succesfully completing the program? In other words, what do you hope to get out of participating in the program?: healthier, stronger Are there issues you are dealing with that will interfere with completing the program?: knees, shoulders Do you have a spouse or signficant other, family or friends who will help sup port you to complete the program?: yes
--- NOTE | 2021-06-01 13:02 | CR.ITP_ITS ---
Diagnosis - General Information Admitting Diagnosis: PCI w/coronary stent placement Personal Learning Style:: Audio/Visual, Written Barriers to Learning: Vision Impairment Stage of change r/t lifestyle modifications:: Action Gave educational material for:: Treating Heart Disease, Emotions & Heart Disease, Stress Management & Relaxation, Sleep Disorders & Heart Disease, How The Heart Works, What it means to have Heart Disease, How Coronary Artery Disease is Diagnosed, Heart Procedures, What Heart Medications Do, Risk Factors & Modifications, Living an Active Life, Nutrition - Education/Goals Individual Counseling: Initial Assessment: Abnormal Cholesterol Levels, High Blood Pressure Cardiac Rehabilitation Goals: 1. Maintain the individual as the primary focus of care. 2. To improve the patient's quality of life. 3. Identification of cardiac risk factors and provide cardiac risk factor management. 4. Enhance the psychosocial status of the patient. 5. Reconditioning enough to allow the patient to resume customary activities. 6. Control symptoms of cardiac disease Personal Goals: Initial Assessment: Improve management of stress and emotions, Improve knowledge of cardiac disease, Control risk factors (learn risk factor modification) - BP and Cholesterol Scale for measuring improvement of personal goals: Enter appropriate number in Comments. 2 = Unchanged. 3 = Slightly Better. 4 = Moderate Improvement. 5 = Met my Goal - Diagnosis & Disease Process Outcomes/Goals: Pt IDs own risk factors & lifestyle modifications by Session 10, Verbalizes symptoms of angina & response by session 3., Pt independently manages Plan/Interventions: Assist Pt to ID & engage in lifestyle modification to reduce CVD risk, Instruct on individual risk factors, Review symptoms of angina & emergency actions, Review secondary diagnosis & identify educational needs. - Safety Referral to Physical Therapy: No Referral to [facility] Case Management: No Fall Risk Assessed:: Yes Assistive Devices:: None Exercise - Initial Assessment - Visit Date of Eval: 06/01/21 Session #:: 0 - pre-cardiac rehab evaluation Mets: Pre-: >7 METS for 30 minutes by discharge - Physician Prescribed Exercise Modalities: Treadmill, Rower, Airdyne, NuStep Frequency: 3x/week for 12 weeks [36 sessions] Intensity: 60-80% of age predicted maximum heart rate reserve Current METSs:: 4.0 Target Heart Rate:: 102-134 Resting Blood Pressure: 124/68 EKG Type: Sinus Rhythm with occasional PVCs - Outcomes & Goals Goals:: Verbalizes understanding of THR, RPE & goal METS by session 6, Documents in home exercise log/reports 30 min aerobic 5 day/wk by DC, Demonstrates accurate pulse taking by DC - Intervention & Plan Exercise Program Goals: Instruct on personal THR & RPE, Instruct on MET level & personal MET goal, Show patient to take own pulse /validate performance until accurate, Instruct on home exercise - Physical Activity Home Exercise Physical Activity - Home Exercise: Safe Exercise, Warm-up, Self-monitoring, Cool-Down, Home Exercise > 30 min Daily, Sitting Time <3 hours/daily - Outcomes & Goals Outcomes/Goals: Demonstrates correct Warm-up/exercise Cool-Down (S3) if = 2.5 METs, Verbalizes symptoms of exercise intolerance by Session 3 (S3), Demonstrate safe equipment use (S3) & follows exercise prescrition (6) - Intervention & Plan Plan/Intervention: Instruct warm-up & cool-down if exercising at > 2 METs, Instruct on symptoms of exercise intolerance & actions to take, Instruct & monitor on saf, Assess intial functional capacity & safety risk Nutrition - Initial Assessment - Program Goals Nutrition Program Goals: LDL <100 optimal. 100 - 129 Near optimal. 130 - 159 Borderline High. 160 - 189 High. Total Cholesterol <200 desirable. 200 - 239 Borderline High. >/= 240 High. HDL < 40 Low >/=60 High. Triglycerides <150 desirable. <199 optimal. VlDL 5 - 40. HgbA1C <7%. BMI <25 Patient has diagnosis of Hyperlipidemia (ICD E78)?: Yes - Visit Date of Assessment:: 06/01/21 Session #:: 0 - pre-cardiac rehab evaluation - Cholesterol/Lipids Triglycerides (mg/dL): 176 - 12/25/2020 Total Cholesterol (mg/dL): 198 LDL Cholesterol (mg/dL): 122 HDL Cholesterol (mg/dL): 41 Determine presence & major risk factors that modify LDL goal: Hypertension or hypertensive medication, Family history of premature CHD in Male < 55 years: female <65 yearsFa, Age men > 45 years; women >/= 55 years Outcomes/Goals: Pt IDs own risk factors & lifestyle modifications by Session 10, Verbalizes symptoms of angina & response by session 3., Pt independently manages Intervention/Plan: Instruct on personal lipid levels & lipid goals/NCEP guidelines, Instruct on cholesterol Referral to dietitian:: No - Patient declined - Diabetes (Other Core Measures) Diabetes Type: Not Applicable - Weight Mgt (Other Care) Not Applicable: Yes Height: 5 ft 9 in Weight:: 152 lb BMI: 22.4 Diagnosis Overweight/Obesity BMI> 30% ICD-10 E66: No Diagnosis High BMI/Morbid Obesity BMI> 35% ICD-10 Z68: No Intervention/Plan: Instruct on ideal BMI & set weight loss goal w/patient - Healthy Eating Habits Will attend diet classes:: Yes Outcomes/Goals:: Consume diet rich in vegs,fruits,whole grain/high fiber,fish,le an meat, Limit sat/trans fats,cholesterol & added salts & sugars Intervention/Plan:: Assess current eating habits Nutrition - 30-Day Assessment Nutrition - 60-Day Assessment Nutrition - 90-Day Assessment Nutrition - Final Assessment Medical - Initial Assessment - Visit Date of Eval: 06/01/21 Session #:: 0 - pre-cardiac rehab evaluation - Medication Compliance Preventative Medication(s):: Aspirin, Clopidogrel/P2Y12 inhibit, Statin/lipid, Beta raymond H/O mental health issues: depression, anxiety, or addiction?: No Doesn?t believe in the benefits of treatment?: No Believes medications are unnecessary or harmful?: No Has a concern about medication side effects?: No Expresses concern over the cost of medications?: No Outcomes/Goals: Verbalizes medications,desired effect & common side effects @ DC, Pt self-reports following medication regimen, Keeps card in wallet w/medications listed by DC Interventions/plans: Instruct on medication effects & side effects, Review medication list w/patient every two weeks, Instruct importance of taking meds as ordered & assist problem solving - Tobacco Use Tobacco Use: Non-smoker - Hypertension Hypertension Diagnosis:: Hypertension ICD-10 I10 Resting Blood Pressure:: 124/68 [place] [employer] Hypertension Guidelines: [place] [employer] Hypertension Guidelines. Normal BP Less than 120/80. Elevated BP 120/80. Hypertension Stage 1: BP 130-139/80-89. Hypertesnion Stage 2: BP 140 or higher/90 or higher. Hypertension Crisis: BP higher than 180/120 Outcomes/Goals: Able to verbalize/achieve optimal blood pressure <130/80, Incorporates diet changes & exercise for blood pressure control by DC Interventions/plan: Instruct on optimal blood pressure, hypertension & medications, Instruct on effects of sodium, alcohol, stress, exercise &hypertension - Tobacco Cessation Referral Smoking Cessation Referral:: No Individual Education/Counseling:: No Education Schedule Given:: Yes Medical- 30-Day Assessment Medical- 60-Day Assessment Medical- 90-Day Assessment Medical - Final Assessment Psychosocial - Initial Assess - VIsit Date of Eval: 06/01/21 Session #:: 0 - pre-cardiac rehab evaluation Not Applicable: Yes History of previous Mental disease:: No Self-reported stressors: Other - work - Psychosocial Test Tool Used:: [employer] QOL Cardiac, PHQ-9 Questionnaire phq-9 Severity: Severity. 1-4 Minimal Depression. 5-9 Mild Depression. 10-14 Moderate Depression. 15-19 Moderately Sever Depression. 20-27 Severe Depression. Rule: - Referral to Behavioral Health PS - Interventions: Yes Attend Stress Management Classes, No Referral to Behavioral Health if PHQ-9 score >9:, No Referral to [facility], No Referral to Physician if PHQ-9 if score is 5-9: - Outcomes/Goals: See list Psychosocial Outcomes/Goals:: ID's personal stressors & 2 strategies to manage stress by discharge - Intervention/Plan: See List Interventions/Plan:: Assess stressors,coping strategies & signs of derpression on admission, Instruct/assist pt to develop coping & personal stress Mgt strategies, Instruct patient to recognize signs & symptoms of depression, Instruct patient to recog Psychosocial - 30-Day Assess Psychosocial - 60-Day Assess Psychosocial - 90-Day Assess Psychosocial - Final Assessmen Patient Health Questionnaire Initial Assessment 1. Little interest or pleasure in doing things: Not at all 2. Feeling down, depressed, or hopeless: Not at all 3. Trouble falling or staying asleep, or sleeping too much: Not at all 4. Feeling tired or having little energy: Not at all 5. Poor appetite or overeating: Not at all 6. Feeling bad about yourself -- or that you are a failure or have let yourself or your family down: Not at all 7. Trouble concentrating on things, such as reading the newspaper or watching television: Not at all 8. Moving or speaking so slowly that other people could have noticed. Or the opposite - being so fidgety or restless that you have been moving around a lot more than usual: Not at all 9. Thoughts that you would be better off , or of hurting yourself in some way: Not at all How difficult have these problems made it for you to do your work, take care of things at home, or get along with other people?: Not difficult at all Total Score: 0 CYRUS-Q SV Test - Statements CAD is a disease of the arteries in the heart: False Examples of risk factors for heart disease: True Angina is chest pain or discomfort: True The benefits of resistance training include: True Eating more meat and dairy products: False Anti-platelet medications such as aspirin are important: True The only effective way to manage stress: False An exercise warm-up slowly increases heart rate: True Prepared, processed foods usually have high sodium: True Depression is common after a heart attack: True The statin medications lower cholesterol: True To control blood pressure, lower the amount of sodium: True If someone gets chest discomfort during walking: False Transfats are partially hydrogenated vegetable oils: I Don't Know Sleep apnea that is not treated increases the risk: I Don't Know To control cholesterol, one should become a vegetarian: False Someone knows if he/she is exercising at the right level: True Diabetes cannot be prevented with exercise & health eating: False Stress is a large risk for heart attack: True A diet that can help lower blood pressure is rich in: True - Total Score Total Correct Responses: 18 Self-Efficacy Initial Assessment We would like to know how confident you are in doing certain activities. Please select your confidence level for:: Select your confidence level for the following using the scale 1-10 where 1 is not at all confident and 10 is totally confident. Your score is the average of all 6 responses. Fatigue: How confident are you that you can keep the fatigue caused by your disease from interfering with the things you want to do? Select Number: 8 Physical Discomfort or Pain: How confident are you that you can keep the physical discomfort or pain of your disease from interfering with the things you want to do? Select Number: 8 Emotional Distress: How confident are you that you can keep the emotional distress caused by your disease from interfering with the things you want to do? Select Number: 7 Other Symptoms or Health Problems: How confident are you that you can keep other symptoms or health problems from interfering with the things you want to do? Select Number: 9 Different Tasks and Activities: How confident are you that you can do the different tasks and activities needed to manage your health condition so as to reduce your need to see a doctor? Select Number: 8 Medication: How confident are you that you can do things other than just taking medication to reduce how much your illness affects your everyday life? Select Number: 10 Total Score:: 8 Nutrition Survey - Nutrition Survey Initial Have you lost >10 lbs over the past 2 months without trying?: No Are you following a special diet at home for diabetes, low fat, or low salt?: No Are you interested in meeting with a dietitian for help understanding your diet?: Yes Do you eat less than 3 meals a day?: No Do you eat fatty meats (whiting, sausage, ribs, etc), fried foods, desserts, large amounts of salad dressings, margarine, butter, or cheese most days?: No Do you have food allergies? [Enter types in comment field]: No Do you eat in restaurants more than 3 times a week?: Yes Do you season food with salt, seasoning salt, or garlic salt?: No Do you used canned, boxed, frozen meals, or soups, seasoning packets?: No Total Score:: 2
[2021-06-01 13:19] VITALS: BP 124/68; BMI 22.4
[2021-06-01 13:40] VITALS: BP 124/68; PULSE 60; RESP 14; TEMP 36.4; O2SAT 97; BMI 22.4
== END ==
PROVIDERS: PCP Family Medicine; Referring Provider Internal Medicine Cardiovascular Disease; Visit Provider Internal Medicine Cardiovascular Disease
DX: Z95.5 Presence of coronary angioplasty implant and graft (principal)

== ENCOUNTER 2021-07-02 15:15 | Outpatient (RCR) | payer OTHER, SELFPAY ==
[2021-06-01 13:19] VITALS: BMI 22.4
[2021-06-01 13:40] VITALS: BMI 22.4
== END 2021-07-03 23:59 ==
LOC: CR 15:15
PROVIDERS: PCP Family Medicine; Referring Provider Internal Medicine Cardiovascular Disease; Visit Provider Internal Medicine Cardiovascular Disease
DX: I25.10 Atherosclerotic heart disease of native coronary artery without angina pectoris (principal); I10 Essential (primary) hypertension; Q24.5 Malformation of coronary vessels; Z95.5 Presence of coronary angioplasty implant and graft
CPT/HCPCS: 93798

== ENCOUNTER 2021-08-01 15:15 | Outpatient (RCR) | payer OTHER, SELFPAY ==
[2021-06-01 13:19] VITALS: BMI 22.4
[2021-07-04 00:18] VITALS: BMI 22.4
--- NOTE | 2021-07-11 08:56 | CR.ITP_ITS ---
Diagnosis Exercise - 30-day Assessment - Visit Date of Eval: 07/11/21 Session #:: 11 - missed one session due to conflict appt. - Physician Prescribed Exercise Modalities: Treadmill, Airdyne, NuStep Frequency: 3x/week for 12 weeks [36 sessions] Intensity: 60-80% of age predicted maximum heart rate reserve Current METSs:: 6.0 increase from 4.0 Target Heart Rate:: 102-134 Resting Blood Pressure: 120/60 Maximum Exercise Blood Pressure: 162/84 EKG Type: Sinus rhythm to sinus tachycardia without ectopy. Current Physical Activity or Exercising minutes: 30-45 - Outcomes & Goals Goals:: Verbalizes understanding of THR, RPE & goal METS by session 6, Documents in home exercise log/reports 30 min aerobic 5 day/wk by DC, Demonstrates accurate pulse taking by DC - Intervention & Plan Exercise Program Goals: Instruct on personal THR & RPE, Instruct on MET level & personal MET goal, Show patient to take own pulse /validate performance until accurate, Instruct on home exercise - 30-day Reassessments 30 day Reassessments:: Progressing - Physical Activity Home Exercise Physical Activity - Home Exercise: Safe Exercise, Warm-up, Self-monitoring, Cool-Down, Home Exercise > 30 min Daily, Sitting Time <3 hours/daily - Outcomes & Goals Outcomes/Goals: Demonstrates correct Warm-up/exercise Cool-Down (S3) if = 2.5 METs, Verbalizes symptoms of exercise intolerance by Session 3 (S3), Demonstrate safe equipment use (S3) & follows exercise prescrition (6) - Intervention & Plan Plan/Intervention: Instruct warm-up & cool-down if exercising at > 2 METs, Instruct on symptoms of exercise intolerance & actions to take, Instruct & monitor on saf, Assess intial functional capacity & safety risk - 30-day Reassessments 30 day Reassessments:: Progressing Nutrition - Initial Assessment Nutrition - 30-Day Assessment - Program Goals Nutrition Program Goals: LDL <100 optimal. 100 - 129 Near optimal. 130 - 159 Borderline High. 160 - 189 High. Total Cholesterol <200 desirable. 200 - 239 Borderline High. >/= 240 High. HDL < 40 Low >/=60 High. Triglycerides <150 desirable. <199 optimal. VlDL 5 - 40. HgbA1C <7%. BMI <25 Patient has diagnosis of Hyperlipidemia (ICD E78)?: Yes - Visit Date of Assessment:: 07/11/21 Session #:: 11 - Cholesterol/Lipids Triglycerides (mg/dL): 176 Total Cholesterol (mg/dL): 198 LDL Cholesterol (mg/dL): 122 HDL Cholesterol (mg/dL): 41 Determine presence & major risk factors that modify LDL goal: Hypertension or hypertensive medication, Family history of premature CHD in Male < 55 years: female <65 yearsFa, Age men > 45 years; women >/= 55 years Outcomes/Goals: Pt IDs own risk factors & lifestyle modifications by Session 10, Verbalizes symptoms of angina & response by session 3. Intervention/Plan: Instruct on personal lipid levels & lipid goals/NCEP guidelines, Instruct on cholesterol Referral to dietitian:: Yes - Medical Nutrition Therapy 30-day Reassessments:: Progressing - Diabetes (Other Core Measures) Diabetes Type: Not Applicable - Weight Mgt (Other Care) Not Applicable: Yes Height: 5 ft 9 in Weight:: 151 lb 8 oz BMI: 22.4 Diagnosis Overweight/Obesity BMI> 30% ICD-10 E66: No Diagnosis High BMI/Morbid Obesity BMI> 35% ICD-10 Z68: No Outcomes/Goals: Pt sets, maintains & shows weight loss goal & trend during rehab Intervention/Plan: Instruct on ideal BMI & set weight loss goal w/patient, Assist pt to ID & incorporate diet changes for weight loss by S9, Encourage goal of using 250-300dcal per session for weight loss 30 day Reassessments:: Progressing - Healthy Eating Habits Will attend diet classes:: Yes Outcomes/Goals:: Consume diet rich in vegs,fruits,whole grain/high fiber,fish,lean meat, Limit sat/trans fats,cholesterol & added salts & sugars Intervention/Plan:: Assess current eating habits 30-day Reassessments:: Progressing - Education Gave educational materials for:: Healthy eating Nutrition - 60-Day Assessment Nutrition - 90-Day Assessment Nutrition - Final Assessment Medical - Initial Assessment Medical- 30-Day Assessment - Visit Date of Eval: 07/11/21 Session #:: 11 - Medication Compliance Preventative Medication(s):: Aspirin, Statin/lipid H/O mental health issues: depression, anxiety, or addiction?: No Doesn?t believe in the benefits of treatment?: No Believes medications are unnecessary or harmful?: No Has a concern about medication side effects?: No Expresses concern over the cost of medications?: No Outcomes/Goals: Verbalizes medications,desired effect & common side effects @ DC, Pt self-reports following medication regimen, Keeps card in wallet w/medications listed by DC Interventions/plans: Instruct on medication effects & side effects, Review medication list w/patient every two weeks, Instruct importance of taking meds as ordered & assist problem solving 30-day Reassessments:: Progressing - Tobacco Use Tobacco Use: Non-smoker - Hypertension Hypertension Diagnosis:: Hypertension ICD-10 I10 Resting Blood Pressure:: 120/60 [place] [employer] Hypertension Guidelines: [place] [employer] Hypertension Guidelines. Normal BP Less than 120/80. Elevated BP 120/80. Hypertension Stage 1: BP 130-139/80-89. Hypertesnion Stage 2: BP 140 or higher/90 or higher. Hypertension Crisis: BP higher than 180/120 Peak Exercise Blood Pressure:: 162/84 Outcomes/Goals: Able to verbalize/achieve optimal blood pressure <130/80, Incorporates diet changes & exercise for blood pressure control by DC Interventions/plan: Instruct on optimal blood pressure, hypertension & medications, Instruct on effects of sodium, alcohol, stress, exercise &hypertension 30 day Reassessments:: Progressing - Tobacco Cessation Referral Smoking Cessation Referral:: No Individual Education/Counseling:: No Education Schedule Given:: Yes Medical- 60-Day Assessment Medical- 90-Day Assessment Medical - Final Assessment Psychosocial - Initial Assess Psychosocial - 30-Day Assess - VIsit Date of Eval: 07/11/21 Session #:: 11 Not Applicable: Yes History of previous Mental disease:: No - Psychosocial Test Tool Used:: PHQ-9 Questionnaire phq-9 Severity: Severity. 1-4 Minimal Depression. 5-9 Mild Depression. 10-14 Moderate Depression. 15-19 Moderately Sever Depression. 20-27 Severe Depression. Rule: - Referral to Behavioral Health PS - Interventions: Yes Attend Stress Management Classes, No Referral to Behavioral Health if PHQ-9 score >9:, No Referral to [facility], No Referral to Physician if PHQ-9 if score is 5-9: - Outcomes/Goals: See list Psychosocial Outcomes/Goals:: ID's personal stressors & 2 strategies to manage stress by discharge - Intervention/Plan: See List Interventions/Plan:: Assess stressors,coping strategies & signs of derpression on admission, Instruct/assist pt to develop coping & personal stress Mgt strategies, Instruct patient to recognize signs & symptoms of depression, Instruct patient to recog - 30-day Reassessments: 30 day Reassessments:: Progressing Psychosocial - 60-Day Assess Psychosocial - 90-Day Assess Psychosocial - Final Assessmen Patient Health Questionnaire 30-Day Re-eval Assessment 1. Little interest or pleasure in doing things: Not at all 2. Feeling down, depressed, or hopeless: Not at all 3. Trouble falling or staying asleep, or sleeping too much: Not at all 4. Feeling tired or having little energy: Not at all 5. Poor appetite or overeating: Not at all 6. Feeling bad about yourself -- or that you are a failure or have let yourself or your family down: Not at all 7. Trouble concentrating on things, such as reading the newspaper or watching television: Not at all 8. Moving or speaking so slowly that other people could have noticed. Or the opposite - being so fidgety or restless that you have been moving around a lot more than usual: Not at all 9. Thoughts that you would be better off , or of hurting yourself in some way: Not at all Total Score: 0 Self-Efficacy 30-Day Re-eval Assessment We would like to know how confident you are in doing certain activities. Please select your confidence level for:: Select your confidence level for the following using the scale 1-10 where 1 is not at all confident and 10 is totally confident. Your score is the average of all 6 responses. Fatigue: How confident are you that you can keep the fatigue caused by your disease from interfering with the things you want to do? Select Number: 8 Physical Discomfort or Pain: How confident are you that you can keep the physical discomfort or pain of your disease from interfering with the things you want to do? Select Number: 8 Emotional Distress: How confident are you that you can keep the emotional distress caused by your disease from interfering with the things you want to do? Select Number: 7 Other Symptoms or Health Problems: How confident are you that you can keep other symptoms or health problems from interfering with the things you want to do? Select Number: 9 Different Tasks and Activities: How confident are you that you can do the different tasks and activities needed to manage your health condition so as to reduce your need to see a doctor? Select Number: 8 Medication: How confident are you that you can do things other than just taking medication to reduce how much your illness affects your everyday life? Select Number: 10 Total Score:: 8 Nutrition Survey
[2021-07-11 09:20] VITALS: BP 120/60; BP 162/84; BMI 22.4
== END 2021-08-02 23:59 ==
LOC: CR 15:15
PROVIDERS: PCP Family Medicine; Referring Provider Internal Medicine Cardiovascular Disease; Visit Provider Internal Medicine Cardiovascular Disease
DX: I25.10 Atherosclerotic heart disease of native coronary artery without angina pectoris (principal); I10 Essential (primary) hypertension; Q24.5 Malformation of coronary vessels; Z95.5 Presence of coronary angioplasty implant and graft
CPT/HCPCS: 93798

== ENCOUNTER → 2021-08-09 09:21 | Outpatient (CLI) | payer OTHER, SELFPAY ==
[2021-08-08 07:31] VITALS: BMI 21.9
[2021-08-09 10:10] LABS: Hematocrit 42.2 % (40-54); Hemoglobin 14.7 g/dL (13.0-16.5); Mean Corp Hgb Conc 34.8 g/dL (32-36); Mean Corpuscular Hgb 32.5 pg (27.0-32.0); Mean Corpuscular Volume 93.4 fL (80-94); Mean Platelet Vol. 8.6 fl (6.2-12.0); Platelet Count 166 K/mm3 (150-450); RBC Distribution Width CV 11.9 % (11.6-14.6); Red Blood Count 4.52 M/mm3 (4.6-6.2); White Blood Count 3.8 K/mm3 (4.4-11.0)
[2021-08-09 11:02] LABS: AST(SGOT) 39 U/L (15-37); Alanine Aminotransfer ALT/SGPT 76 U/L (16-61); Albumin, Serum 3.7 g/dL (3.2-5.0); Alkaline Phosphatase 63 U/L (45-117); Anion Gap 6 (5-15); BUN 11 mg/dL (7-18); BUN/Creat Ratio 13.4 RATIO (10-20); Chloride 102 mmol/L (98-107); Cholesterol 143 mg/dL (200); Creatinine, Serum 0.82 mg/dL (0.70-1.30); EST Glomerular Filtration Rate 101 mL/min (>60); Est Glom Filt Rate - Afr Amer 122 mL/min (>60); Globulin 3.6 g/dL (2.2-4.2); Glucose 99 mg/dL (74-106); High Density Lipoprotein 56 mg/dL; Potassium 4.2 mmol/L (3.5-5.1); Protein, Total 7.3 g/dL (6.4-8.2); Sodium Level 136 mmol/L (136-145); T4 Free Direct 1.03 ng/dL (0.76-1.46); Thyroid Stim Hormone (TSH) 3.77 uIU/mL (0.358-3.74); Triglycerides 152 mg/dL; Very Low Density Lipoprotein 30 mg/dL (5-40)
== END ==
PROVIDERS: PCP Family Medicine; Referring Provider Family Medicine; Visit Provider Family Medicine
DX: E03.9 Hypothyroidism, unspecified (principal); E78.1 Pure hyperglyceridemia; I25.10 Atherosclerotic heart disease of native coronary artery without angina pectoris; E78.5 Hyperlipidemia, unspecified
CPT/HCPCS: 36415; 80053; 80061; 82248; 84439; 84443; 85027

== ENCOUNTER 2021-08-13 16:00 | Outpatient (RCR) | payer OTHER, SELFPAY ==
[2021-07-11 09:20] VITALS: BMI 22.4
[2021-08-08 07:31] VITALS: BMI 21.9
== END 2021-08-13 23:59 | disposition home or self-care (01) ==
LOC: NS 16:00
PROVIDERS: PCP Family Medicine; Visit Provider Internal Medicine Cardiovascular Disease
DX: Z71.3 Dietary counseling and surveillance (principal); I25.10 Atherosclerotic heart disease of native coronary artery without angina pectoris; I10 Essential (primary) hypertension; E78.5 Hyperlipidemia, unspecified
CPT/HCPCS: 97802

== ENCOUNTER 2021-08-29 15:45 | Outpatient (RCR) | payer OTHER, SELFPAY ==
[2021-07-11 09:20] VITALS: BMI 22.4
[2021-08-03 00:13] VITALS: BP 120/60; BP 162/84; BMI 22.4
--- NOTE | 2021-08-08 07:22 | CR.ITP_ITS ---
Diagnosis Exercise - 60-day Assessment - Visit Date of Eval: 08/08/21 Session #:: 21 - Physician Prescribed Exercise Modalities: Treadmill, Airdyne, NuStep Frequency: 3x/week for 12 weeks [36 sessions] Intensity: 60-80% of age predicted maximum heart rate reserve Current METSs:: 8 Target Heart Rate:: 102-134 Current RPE:: 12-14 Maximum Excercise HR:: 141 Resting Blood Pressure: 126/82 Maximum Exercise Blood Pressure: 168/88 EKG Type: SR to sinus tachy w/rare pac and pvc. - Outcomes & Goals Goals:: Verbalizes understanding of THR, RPE & goal METS by session 6, Documents in home exercise log/reports 30 min aerobic 5 day/wk by DC, Demonstrates accurate pulse taking by DC, Other additional outcome/goals: see below - Intervention & Plan Exercise Program Goals: Instruct on personal THR & RPE, Instruct on MET level & personal MET goal, Show patient to take own pulse /validate performance until accurate, Instruct on home exercise, Other additional plan/int - 30-day Reassessments 30 day Reassessments:: Progressing - Physical Activity Home Exercise Physical Activity - Home Exercise: Safe Exercise, Warm-up, Self-monitoring, Cool-Down, Home Exercise > 30 min Daily, Sitting Time <3 hours/daily - Outcomes & Goals Outcomes/Goals: Demonstrates correct Warm-up/exercise Cool-Down (S3) if = 2.5 METs, Verbalizes symptoms of exercise intolerance by Session 3 (S3), Demonstrate safe equipment use (S3) & follows exercise prescrition (6), Other: See below - Intervention & Plan Plan/Intervention: Instruct warm-up & cool-down if exercising at > 2 METs, Instruct on symptoms of exercise intolerance & actions to take, Instruct & monitor on saf, Assess intial functional capacity & safety risk, Other See below - 30-day Reassessments 30 day Reassessments:: Progressing Nutrition - Initial Assessment Nutrition - 30-Day Assessment Nutrition - 60-Day Assessment - Program Goals Nutrition Program Goals: LDL <100 optimal. 100 - 129 Near optimal. 130 - 159 Borderline High. 160 - 189 High. Total Cholesterol <200 desirable. 200 - 239 Borderline High. >/= 240 High. HDL < 40 Low >/=60 High. Triglycerides <150 desirable. <199 optimal. VlDL 5 - 40. HgbA1C <7%. BMI <25 Patient has diagnosis of Hyperlipidemia (ICD E78)?: Yes - Visit Date of Assessment:: 08/08/21 Session #:: 21 - Cholesterol/Lipids Determine presence & major risk factors that modify LDL goal: Hypertension or hypertensive medication, Low HDL cholesterol <40 mg/dL*, Family history of premature CHD in Male < 55 years: female <65 yearsFa, Age men > 45 years; women >/= 55 years Outcomes/Goals: Pt IDs own risk factors & lifestyle modifications by Session 10, Verbalizes symptoms of angina & response by session 3., Pt independently manages, Other Additional Outcomes/Goals: Intervention/Plan: Advocate for lipid panel cholesterol medication if applicable, Instruct on personal lipid levels & lipid goals/NCEP guidelines, Instruct on cholesterol, Other additional plan/int Referral to dietitian:: Yes - medical nutrition therapy 30-day Reassessments:: Progressing - Diabetes (Other Core Measures) Diabetes Type: Not Applicable - Weight Mgt (Other Care) Height: 5 ft 9 in Weight:: 67.585 kg BMI: 21.9 Diagnosis Overweight/Obesity BMI> 30% ICD-10 E66: No Diagnosis High BMI/Morbid Obesity BMI> 35% ICD-10 Z68: No Outcomes/Goals: Pt sets, maintains & shows weight loss goal & trend during rehab, Other additional outcomes/goals Intervention/Plan: Instruct on ideal BMI & set weight loss goal w/patient, Assist pt to ID & incorporate diet changes for weight loss by S9, Refer to Structured Weight Loss program as appropriate, Encourage goal of using 250- 300dcal per session for weight loss, Other additional plan/interventions 30 day Reassessments:: Progressing - Healthy Eating Habits Will attend diet classes:: Yes Outcomes/Goals:: Consume diet rich in vegs,fruits,whole grain/high fiber,fish,lean meat, Limit sat/trans fats,cholesterol & added salts & sugars, Other additional outcome/goals: Intervention/Plan:: Assess current eating habits, Other Additional plan/interve ntions 30-day Reassessments:: Progressing - Education Gave educational materials for:: Signs & symptoms of hypoglycemia, Signs & symptoms of hyperglycemia, Relate diabetes to coronary artery disease, Healthy eating Nutrition - 90-Day Assessment Nutrition - Final Assessment Medical - Initial Assessment Medical- 30-Day Assessment Medical- 60-Day Assessment - Visit Date of Eval: 10/06/21 Session #:: 21 - Medication Compliance Preventative Medication(s):: Aspirin, Statin/lipid H/O mental health issues: depression, anxiety, or addiction?: No Doesn?t believe in the benefits of treatment?: No Believes medications are unnecessary or harmful?: No Has a concern about medication side effects?: No Expresses concern over the cost of medications?: No Outcomes/Goals: Verbalizes medications,desired effect & common side effects @ DC, Pt self-reports following medication regimen, Keeps card in wallet w/medications listed by DC, Other additional outcome/goals: Interventions/plans: Instruct on medication effects & side effects, Review medication list w/patient every two weeks, Instruct importance of taking meds as ordered & assist problem solving, Other additional 30-day Reassessments:: Progressing - Tobacco Use Tobacco Use: Non-smoker - Hypertension Hypertension Diagnosis:: Hypertension ICD-10 I10 Resting Blood Pressure:: 126/82 [place] [employer] Hypertension Guidelines: [place] [employer] Hypertension Guidelines. Normal BP Less than 120/80. Elevated BP 120/80. Hypertension Stage 1: BP 130-139/80-89. Hypertesnion Stage 2: BP 140 or higher/90 or higher. Hypertension Crisis: BP higher than 180/120 Peak Exercise Blood Pressure:: 168/88 Outcomes/Goals: Able to verbalize/achieve optimal blood pressure <130/80, Incorporates diet changes & exercise for blood pressure control by DC, Other additional outcomes/goals Interventions/plan: Instruct on optimal blood pressure, hypertension & medications, Instruct on effects of sodium, alcohol, stress, exercise &hypertension, Other additional plan/interventions 30 day Reassessments:: Progressing - Tobacco Cessation Referral Smoking Cessation Referral:: No Individual Education/Counseling:: No Education Schedule Given:: Yes Medical- 90-Day Assessment Medical - Final Assessment Psychosocial - Initial Assess Psychosocial - 30-Day Assess Psychosocial - 60-Day Assess - VIsit Date of Eval: 08/08/21 Session #:: 21 History of previous Mental disease:: No - Outcomes/Goals: See list Psychosocial Outcomes/Goals:: ID's personal stressors & 2 strategies to manage stress by discharge, Other Additional outcome/goals: - Intervention/Plan: See List Interventions/Plan:: Assess stressors,coping strategies & signs of derpression on admission, Instruct/assist pt to develop coping & personal stress Mgt strategies, Refer to Behavioral Health if appropriate, Refer to Physician if appropriate, Instruct patient to recognize signs & symptoms of depression, Instruct patient to recog, Other additional plan/intervention - 30-day Reassessments: 30 day Reassessments:: Progressing Psychosocial - 90-Day Assess Psychosocial - Final Assessmen Patient Health Questionnaire 60-Day Re-eval Assessment 1. Little interest or pleasure in doing things: Not at all 2. Feeling down, depressed, or hopeless: Not at all 3. Trouble falling or staying asleep, or sleeping too much: Not at all 4. Feeling tired or having little energy: Not at all 5. Poor appetite or overeating: Not at all 6. Feeling bad about yourself -- or that you are a failure or have let yourself or your family down: Not at all 7. Trouble concentrating on things, such as reading the newspaper or watching television: Not at all 8. Moving or speaking so slowly that other people could have noticed. Or the opposite - being so fidgety or restless that you have been moving around a lot more than usual: Not at all 9. Thoughts that you would be better off , or of hurting yourself in some way: Not at all How difficult have these problems made it for you to do your work, take care of things at home, or get along with other people?: Not difficult at all Total Score: 0 Self-Efficacy 60-Day Re-eval Assessment We would like to know how confident you are in doing certain activities. Please select your confidence level for:: Select your confidence level for the following using the scale 1-10 where 1 is not at all confident and 10 is totally confident. Your score is the average of all 6 responses. Fatigue: How confident are you that you can keep the fatigue caused by your disease from interfering with the things you want to do? Select Number: 8 Physical Discomfort or Pain: How confident are you that you can keep the physical discomfort or pain of your disease from interfering with the things you want to do? Select Number: 8 Emotional Distress: How confident are you that you can keep the emotional distress caused by your disease from interfering with the things you want to do? Select Number: 7 Other Symptoms or Health Problems: How confident are you that you can keep other symptoms or health problems from interfering with the things you want to do? Select Number: 9 Different Tasks and Activities: How confident are you that you can do the different tasks and activities needed to manage your health condition so as to reduce your need to see a doctor? Select Number: 8 Medication: How confident are you that you can do things other than just taking medication to reduce how much your illness affects your everyday life? Select Number: 10 Total Score:: 8 Nutrition Survey
[2021-08-08 07:31] VITALS: BP 126/82; BP 168/88; BMI 21.9
== END 2021-09-02 23:59 ==
LOC: CR 15:45
PROVIDERS: PCP Family Medicine; Referring Provider Internal Medicine Cardiovascular Disease; Visit Provider Internal Medicine Cardiovascular Disease
DX: I25.10 Atherosclerotic heart disease of native coronary artery without angina pectoris (principal); I10 Essential (primary) hypertension; Q24.5 Malformation of coronary vessels; Z95.5 Presence of coronary angioplasty implant and graft
CPT/HCPCS: 93798

== ENCOUNTER 2021-09-24 15:15 | Outpatient (RCR) | payer OTHER, SELFPAY ==
[2021-08-08 07:31] VITALS: BMI 21.9
[2021-09-03 00:10] VITALS: BP 126/82; BP 168/88; BMI 22.4
== END 2021-10-02 23:59 ==
LOC: CR 15:15
PROVIDERS: PCP Family Medicine; Referring Provider Internal Medicine Cardiovascular Disease; Visit Provider Internal Medicine Cardiovascular Disease
DX: I25.10 Atherosclerotic heart disease of native coronary artery without angina pectoris (principal); I10 Essential (primary) hypertension; Q24.5 Malformation of coronary vessels; Z95.5 Presence of coronary angioplasty implant and graft
CPT/HCPCS: 93798

== ENCOUNTER 2021-11-20 09:16 | Outpatient (CLI) | payer OTHER, SELFPAY ==
[2021-08-08 07:31] VITALS: BMI 21.9
[2021-11-20 10:35] LABS: ALB/GLOB Ratio 1.1 RATIO (0.9-2.4); AST(SGOT) 27 U/L (15-37); Alanine Aminotransfer ALT/SGPT 63 U/L (16-61); Albumin, Serum 3.7 g/dL (3.2-5.0); Alkaline Phosphatase 61 U/L (45-117); Anion Gap 8 (5-15); BUN 11 mg/dL (7-18); BUN/Creat Ratio 13.4 RATIO (10-20); Calcium,Total 9.1 mg/dL (8.5-10.1); Chloride 100 mmol/L (98-107); Cholesterol 119 mg/dL (200); Creatinine, Serum 0.82 mg/dL (0.70-1.30); EST Glomerular Filtration Rate 101 mL/min (>60); Est Glom Filt Rate - Afr Amer 122 mL/min (>60); Globulin 3.3 g/dL (2.2-4.2); Glucose 101 mg/dL (74-106); High Density Lipoprotein 46 mg/dL; Potassium 3.9 mmol/L (3.5-5.1); Sodium Level 136 mmol/L (136-145); T4 Free Direct 1.24 ng/dL (0.76-1.46); Thyroid Stim Hormone (TSH) 1.47 uIU/mL (0.358-3.74); Triglycerides 87 mg/dL; Very Low Density Lipoprotein 17 mg/dL (5-40)
== END 2021-11-20 23:59 | disposition short-term general hospital (02) ==
LOC: MTLAB 09:18
PROVIDERS: PCP Family Medicine; Referring Provider Family Medicine; Visit Provider Family Medicine
DX: E78.1 Pure hyperglyceridemia (principal); E03.9 Hypothyroidism, unspecified
CPT/HCPCS: 36415; 80053; 80061; 84439; 84443

== ENCOUNTER 2022-01-29 06:09 | Outpatient (CLI) | payer OTHER, SELFPAY ==
[2021-08-08 07:31] VITALS: BMI 21.9
--- NOTE | 2022-01-29 13:32 | STRESSREP_ITS ---
Stress Test Report Date: 01/29/2022 Procedure: Exercise tolerance test/imaging study Indications: Chest pain Consent: Per the patient Procedure: The patient exercised on a Jovany protocol for 10 minutes achieving a peak heart rate of 150 bpm (95% predicted maximal heart rate) with a peak blood pressure 172/88 mmHg and a peak MET capacity of 13.4 METs. The baseline ECG demonstrated normal sinus rhythm. The peak exercise ECG demonstrated about [address] depressions in the inferior leads and V6, upsloping ST depressions in V4 and V5. EKG during recovery revealed return of ST segments towards baseline. [There were no cardiac dysrhythmias pretest, during exercise, or recovery]. The functional capacity was considered excellent for age. There was [no complaint of chest discomfort during exercise or recovery]. The examination was discontinued secondary to dyspnea. Impression: 1. Technically adequate (percent predicted maximal heart rate greater than 85%) exercise tolerance test 2. Stress test is positive for exercise-induced EKG changes of ischemia 3. The test test is negative for exercise-induced chest pain 4. Functional capacity is excellent for age 5. Nuclear images pending Myocardial perfusion imaging study: Technique: The patient was injected with 11.8 mCi of technetium 99m Cardiolite and subsequently rest SPECT Cardiolite nuclear imaging was obtained in the horizontal long, vertical long, and short axis views. The patient exercised on a Jovany protocol. Please see above for details. The patient was injected with 33.9 mCi of technetium 99m Cardiolite and subsequently stress SPECT Cardiolite nuclear imaging was obtained in the horizontal long, vertical long, and short axis views. A gated Cardiolite study at peak stress was obtained. Interpretation: Rest and stress SPECT Cardiolite nuclear imaging status post realignment, normalization, and attenuation correction, demonstrates normal myocardial radioisotope uptake after attenuation correction in both the rest and stress images. There is no evidence of significant ischemia or infarction. The gated Cardiolite study demonstrates no significant regional wall motion abnormalities. The reported LVEF is greater than 70%. Impression: 1. There is no evidence of significant ischemia or infarction. 2. The gated Cardiolite study reports an LVEF of greater than 70%. This note was generated with [employer]ation software. It may contain incorrect words, spelling, and punctuation that were not noted in checking the note before signing.
== END 2022-01-29 23:59 | disposition home or self-care (01) ==
LOC: CVS 06:10
PROVIDERS: PCP Family Medicine; Visit Provider Internal Medicine Cardiovascular Disease
DX: I25.10 Atherosclerotic heart disease of native coronary artery without angina pectoris (principal); Q24.5 Malformation of coronary vessels; E78.5 Hyperlipidemia, unspecified; I10 Essential (primary) hypertension; R07.2 Precordial pain; Z95.5 Presence of coronary angioplasty implant and graft
CPT/HCPCS: 78452; 93017; A9500; A4216

== ENCOUNTER → 2022-11-21 | Outpatient (CLI) | payer OTHER, SELFPAY ==
[2021-08-08 07:31] VITALS: BMI 21.9
[2022-11-21 13:00] LABS: ALB/GLOB Ratio 1.3 RATIO (0.9-2.4); AST(SGOT) 23 U/L (15-37); Alanine Aminotransfer ALT/SGPT 49 U/L (16-61); Albumin, Serum 4.2 g/dL (3.2-5.0); Alkaline Phosphatase 65 U/L (45-117); Anion Gap 5 (5-15); BUN 13 mg/dL (7-18); BUN/Creat Ratio 14.2 RATIO (10-20); Calcium,Total 9.5 mg/dL (8.5-10.1); Chloride 102 mmol/L (98-107); Cholesterol 134 mg/dL (200); Creatinine, Serum 0.92 mg/dL (0.70-1.30); EST Glomerular Filtration Rate 88 mL/min (>60); Est Glom Filt Rate - Afr Amer 107 mL/min (>60); Globulin 3.3 g/dL (2.2-4.2); Glucose 93 mg/dL (74-106); High Density Lipoprotein 48 mg/dL; Potassium 3.9 mmol/L (3.5-5.1); Protein, Total 7.5 g/dL (6.4-8.2); Sodium Level 135 mmol/L (136-145); Thyroid Stim Hormone (TSH) 2.66 uIU/mL (0.358-3.74); Triglycerides 119 mg/dL; Very Low Density Lipoprotein 24 mg/dL (5-40)
== END | disposition home or self-care (01) ==
PROVIDERS: PCP Family Medicine; Referring Provider Family Medicine; Visit Provider Family Medicine
DX: I25.10 Atherosclerotic heart disease of native coronary artery without angina pectoris (principal); E03.9 Hypothyroidism, unspecified
CPT/HCPCS: 36415; 80053; 80061; 84443

== ENCOUNTER → 2022-12-20 | Outpatient (CLI) | payer OTHER, SELFPAY ==
[2021-08-08 07:31] VITALS: BMI 21.9
--- NOTE | 2022-12-20 15:35 | MRI_ITS ---
EXAM: MR RIGHT UPPER EXTREMITY WITHOUT INTRAVENOUS CONTRAST, SHOULDER CLINICAL INDICATION: Shoulder pain TECHNIQUE: Multiplanar and multisequence MR images of the right shoulder without intravenous contrast. This report was created using [employer] report [employer] technology. COMPARISON: None. FINDINGS: TENDONS: SUPRASPINATUS: Mild to moderate supraspinatus tendinosis without tendon tearing. INFRASPINATUS: Unremarkable. No infraspinatus tendon tear. SUBSCAPULARIS: Unremarkable. Intact. TERES MINOR: Unremarkable. Intact. BICEPS BRACHII, LONG HEAD: Intact long biceps tendon which is normal in position. LIGAMENTS: GLENOHUMERAL: Unremarkable. Intact. MUSCLES: Unremarkable. No significant muscle atrophy or edema. FLUID: Large glenohumeral joint effusion with synovitis. No subacromial-subdeltoid space bursal fluid. CARTILAGE: Unremarkable. Articular cartilage intact. GLENOID LABRUM: Global labral degeneration with areas of degenerative tearing. BONES/JOINTS: Severe osteoarthrosis of the glenohumeral joint including degenerative bone marrow edema as well as degenerative subchondral cystic changes. Fluid extends down and the long biceps tendon sheath. Global labral degeneration with areas of degenerative tearing present. Humeral head cysts are likely secondary to impingement and are most likely benign. Moderate hypertrophic degenerative changes acromioclavicular joint. Type II acromion with curved undersurface. No subacromial enthesophyte. No os acromiale. No recent fracture. OTHER SOFT TISSUES: Unremarkable. No rotator interval edema. OTHER FINDINGS: Neurovascular structures are grossly unremarkable. MRI/Upper Ext Joint Only(Routine) IMPRESSION: 1. Large joint effusion severe osteoarthrosis of the glenohumeral joint. 2. Global labral degeneration with areas of degenerative tearing present. Electronically Signed: Kennedy Peterson MD at 22:46 EST ,
== END | disposition home or self-care (01) ==
LOC: MRI 15:19
PROVIDERS: PCP Family Medicine; Visit Provider Family Medicine
DX: M25.511 Pain in right shoulder (principal)
CPT/HCPCS: 73221

== ENCOUNTER → 2022-12-25 | Outpatient (CLI) | payer OTHER, SELFPAY ==
[2021-08-08 07:31] VITALS: BMI 21.9
[2022-12-25 15:33] LABS: PSA,Total - Annual Screen 1.38 ng/mL (0.00-4.00)
== END | disposition home or self-care (01) ==
LOC: MFPLAB 12:32
PROVIDERS: PCP Family Medicine; Referring Provider Family Medicine; Visit Provider Family Medicine
DX: Z12.5 Encounter for screening for malignant neoplasm of prostate (principal)
CPT/HCPCS: 36415; 84153; G0103

== ENCOUNTER → 2023-06-13 | Outpatient (CLI) | payer OTHER, SELFPAY ==
[2021-08-08 07:31] VITALS: BMI 21.9
[2023-06-13 16:01] LABS: ALB/GLOB Ratio 1.1 RATIO (0.9-2.4); AST(SGOT) 40 U/L (15-37); Alanine Aminotransfer ALT/SGPT 66 U/L (16-61); Albumin, Serum 3.9 g/dL (3.2-5.0); Alkaline Phosphatase 73 U/L (45-117); Anion Gap 6 (5-15); BUN 12 mg/dL (7-18); BUN/Creat Ratio 14.7 RATIO (10-20); Chloride 100 mmol/L (98-107); Cholesterol 137 mg/dL (200); Creatinine, Serum 0.82 mg/dL (0.70-1.30); EST Glomerular Filtration Rate 101 mL/min (>60); Est Glom Filt Rate - Afr Amer 122 mL/min (>60); Globulin 3.5 g/dL (2.2-4.2); Glucose 89 mg/dL (74-106); High Density Lipoprotein 51 mg/dL; Potassium 3.7 mmol/L (3.5-5.1); Protein, Total 7.4 g/dL (6.4-8.2); Sodium Level 133 mmol/L (136-145); Thyroid Stim Hormone (TSH) 4.36 uIU/mL (0.358-3.74); Triglycerides 144 mg/dL; Very Low Density Lipoprotein 29 mg/dL (5-40)
== END | disposition home or self-care (01) ==
LOC: LAB 12:07
PROVIDERS: PCP Family Medicine; Referring Provider Family Medicine; Visit Provider Family Medicine
DX: E03.9 Hypothyroidism, unspecified (principal); E78.1 Pure hyperglyceridemia; I10 Essential (primary) hypertension
CPT/HCPCS: 36415; 80053; 80061; 84443

== ENCOUNTER → 2023-08-25 | Outpatient (CLI) | payer BC, SELFPAY ==
[2021-08-08 07:31] VITALS: BMI 21.9
[2023-08-25 18:36] LABS: T4 Free Direct 1.26 ng/dL (0.76-1.46)
== END | disposition home or self-care (01) ==
LOC: MTLAB 14:44
PROVIDERS: PCP Family Medicine; Referring Provider Family Medicine; Visit Provider Family Medicine
DX: E03.9 Hypothyroidism, unspecified (principal)
CPT/HCPCS: 36415; 84439; 84443

== ENCOUNTER → 2024-01-02 | Outpatient (CLI) | payer MEDICARE, BC, SELFPAY ==
[2021-08-08 07:31] VITALS: BMI 21.9
--- OUTSIDE RECORDS SUMMARY | 2024-01-02 10:46 | XMS RPT_ITS | CCD ---
Author Name Unknown Address [address] [place] [address] Organization [facility] Care Team Providers Care Dye Tank Tender Name Role Phone Jeanne Arteaga MD Primary Care Provider SHALOM VARGHESE Attending JEANNE Reynoso Primary Care UnavailBEN Garner Referring Unavailable SHALOM VARGHESE Attending JEANNE Reynoso Primary Care SHALOM Lara Referring Alevai JEANNE Huynh Primary Care SHALOM Lara Referring Unavai lable SHALOM VARGHESE Attending JEANNE Reynoso Primary Care JEANNE Watson Primary Care UnavailHODAN Amin Attending SHALOM Jordan Referring Unavai lable Medications Current Medications Medication Drug Class(es) Dates Sig (Normalized) Sig (Original) aspirin 81 mg chewable tablet (6 sources) Platelet Aggregation Inhibitor, Nonsteroidal Anti-inflammatory Drug Start: 04-12-2021 aspirin 81 MG Chew Tab chewable tablet Chew 1 tablet daily every morning. 300 tablet 0 04/12/2021 Active atorvastatin 80 mg oral tablet (6 sources) HMG-CoA Reductase Inhibitor take 1 tablet by mouth once daily atorvastatin 80 MG tablet Take 80 mg by mouth daily. 0 Active clopidogrel 75 mg oral tablet (12 sources) P2Y12 Platelet Inhibitor Start: 05-12-2021 take 1 tablet by mouth once daily clopidogrel 75 MG tablet Take 1 tablet by mouth daily. 30 tablet 11 05/12/2021 Active Completed/Discontinued Medications Medication Drug Class(es) Dates Sig (Normalized) Sig (Original) 24 hr isosorbide mononitrate 30 mg extended release oral tablet (6 sources) Nitrate Vasodilator End: 05-13-2022 take 1 tablet by mouth once daily in the morning, then take 1 tablet by mouth every twenty-four hours isosorbide mononitrate 30 MG Tab SR 24 HR tablet XL Take 30 mg by mouth daily every morning. HAS NOT STARTED YET 0 05/13/2022 Discontinued (Therapy completed) Perflutren Lipid Microsphere (DEFINITY) 1.5 mL in Normal Saline Flush 0.9% 8.5 mL (1 source) Start: 03-18-2022 End: 03-18-2022 Perflutren Lipid Microsphere (DEFINITY) 1.5 mL in Normal Saline Flush 0.9% 8.5 mL pravastatin sodium 40 mg oral tablet (6 sources) HMG-CoA Reductase Inhibitor End: 05-13-2022 take 1 tablet by mouth once daily pravastatin 40 MG tablet Take 40 mg by mouth daily. 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; Translations: [Malformation of coronary vessels] Onset: 03-07-2021 Chronic Coronary atherosclerosis and other heart disease (1 source) Coronary atherosclerosis; Translations: [Atherosclerotic heart disease of [place] coronary artery without angina pectoris] Chronic Disorders of lipid metabolism (1 source) Hyperlipidemia; Translations: [Hyperlipidemia, unspecified] Chronic Essential hypertension (1 source) Essential hypertension; Translations: [Essential (primary) hypertension] Chronic Nonspecific chest pain (1 source) Chest pain; Translations: [Chest pain, unspecified] Episodic Past or Other Problems Problem Classification Problem Date Documented Da te Episodic/Chronic Other screening for suspected conditions (not mental disorders or infectious disease) (6 sources) Abnormal findings diagnostic imaging heart+coronary circulat; Translations: [Abnormal findings on diagnostic imaging of heart and coronary circulation] Onset: 03-07-2021 03-28-2021 Episodic Results Test Name Value Interpretation Reference Range Facil ity Vital Signs Date Time Vital Sign Value Performing Clinician Jose meza 05-13-2022 13:14-0400 Body height 175.3 cm Hodan Palacios MD Work Phone: [facility] 05-13-2022 13:14-0400 Body mass index (BMI) [Ratio] 21.71 kg/m2 Hodan Palacios MD Work Phone: [facility] 05-13-2022 13:14-0400 Body temperature 98.29 [degF] Hodan Palacios MD Work Phone: [facility] 05-13-2022 13:14-0400 Body weight 66.68 kg Hodan Palacios MD Work Phone: [facility] 05-13-2022 13:14-0400 Diastolic blood pressure 98 mm[Hg] Hodan Palacios MD Work Phone: [facility] 05-13-2022 13:14-0400 Heart rate 74 /min Hodan Palacios MD Work Phone: [facility] 05-13-2022 13:140400 Respiratory rate 16 /min Hodan Palacios MD Work Phone: [facility] 05-13-2022 13:14-0400 SaO2% (BldA) [Mass fraction] 98 % Hodan Palacios MD Work Phone: [facility] 05-13-2022 13:14-0400 Systolic blood pressure 166 mm[Hg] Hodan Palacios MD Work Phone: [facility] 03-18-2022 14:04-0400 Body height 175.3 cm Shalom Varghese MD Work Phone: [facility] 03-18-2022 14:04-0400 Body mass index (BMI) [Ratio] 21.56 kg/m2 Shalom Varghese MD Work Phone: [facility] 03-18-2022 14:04-0400 Body weight 66.22 kg Shalom Varghese MD Work Phone: [facility] 02-28-2022 08:10-0400 Body height 175.3 cm Shalom Varghese MD Work Phone: [facility] Encounters Encounter Date Encounter Type Care Provider Facility Start: 05-13-2022 ambulatory JEANNE Titus cility:[facility] Start: 05-13-2022 End: 05-13-2022 Office outpatient new 60 minutes Hodan Palacios MD Work Phone: [facility] Procedures Date Procedure Procedure Detail Performing Clinician Start: 03-18-2022 Echo tthrc r-t 2d w/ wo m-mode complete rest&st Shalom Varghese MD Work Phone: History of placement of stent for coronary artery disease History of coronary artery stent placement Shalom Varghese MD Work Phone: Plan of Treatment Date Care Activity Detail Author Start: 03-13-2023 End: 03-13-2023 Patient encounter procedure 03/13/2023 Office Visit Cardiovascular Medicine Shalom Varghese MD [address] [place] [address] Heart and Vascular Outpatient Care [facility] Start: 07-04-2022 Influenza vaccination [facility] Start: 04-18-2022 End: 04-18-2022 Patient encounter procedure 04/18/2022 Office Visit Thoracic Surgery Hodan Palacios MD [address] [place] [address] [facility] Start: 03-14-2022 End: 03-14-2022 Patient encounter procedure 03/14/2022 Appointment Computerized Tomography Scan Shalom Varghese MD [address] [place] [address] (work) Cardiovascular Imaging Lab [facility] Start: 02-28-2022 End: 02-28-2023 CT angiography of coronary arteries CT ANGIO CARDIAC WITH CORONARY ARTERIES Imaging Routine Anomalous coronary artery origin Expected: 02/28/2022, Expires: 02/28/2023 [facility] Payers Date Payer Category Payer Unknown [facility] [employer] [facility] [employer] / [employer] [id number] 2021-Present [address] [place] [address] [id number] 2021 Unknown [id number] 1960 Unknown [id number] 1960 Unknown [id number] 1960 Unknown [id number] 1960 Unknown [id number] Social History Date Type Detail Facility Start: 03-23-2021 Tobacco smoking stat [facility] Never smoked tobacco [facility] Start: 03-23-2021 Tobacco use and exposure Smokeless tobacco non-user [facility] Start: 04-12-2021 End: 05-13-2022 Alcohol intake Current drinker of alcohol (finding) [facility] Start: 1960 Sex Assigned At Not on file O [facility] Medical Equipment Procedure Code Equipment Code Equipment Origin al Text Equipment Identifier Dates Coronary Stent 1 6mm 2.5mm Synergy Xd Monorail 144cm - [id number] , [id number] FDA Start: 04-11-2021 Clinical Notes 02-28-2022 to 07-11-2022 Patient InstructionsRUIZ Lan - 05/13/2022 1:45 PM EDTTelephone Encounter - Jeanie Werner RN - 03/19/2022 12:57 PM EDTTelephone Encounter - Jeanie Werner RN - 03/19/2022 12:57 PM EDT Note Date & Type Note Facility 05-13-2022 Instructions URIZ Lan - 05/13/2022 2:11 PM EDT Thank you for choosing [facility] Division of Cardiac Surgery for your cardiac surgical needs. Please continue to follow-up with your Plastic Frame Inserter for your heart issues and with your Primary Care Physician for other medical issues. 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 For Questions regarding follow-up in the future, please call [phone] Palacios s operations administrative assistant. documented in this encounter [facility] 05-13-2022 History of Presen t illness Narrative Images from the original note were not included. Cardiothoracic Surgery H&P CC anomalous LAD HPI Mr. Mcknight is a 62 y.o. 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 Referred by Dr. Varghese anomalous LAD. Originally referred to [facility] by Dr. Martínez in [place]. Repeat stress test with 1mm ST segment depression and no wall motion abnormalities 01/2022. Per referral: reviewed CT 03/02/21 with imaging order packer and LAD originates from right cusp close to the origin of the RCA. The LAD courses between the aorta and pulmonary artery, though appears to have space and is not being compressed. However, it does appear that the LAD either brushes against the pulmonary artery or likely intra-mural of the pulmonary artery. He presents with symptoms of some dizziness. He had stents placed in 03/2021, he did not have any chest pain afterwards until this March. Has not had it recently though. 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 They deny fever/chills, shortness of breath, palpitations, or edema. CCS Classification: [x]Class I - Angina only during strenuous or prolonged physical activity [ ]Class II - Slight limitation, with angina only during vigorous physical activity [ ]Class III - Symptoms with everyday living activities, i.e., moderate limitation [ ]Class IV - Inability to perform any activity without angina or angina at rest, i.e., severe limitation NYHA Classification: [x] Class I - Cardiac disease, but no symptoms and no limitation in ordinary physical activity, e.g. no shortness of breath when walking, climbing stairs etc. [ ] Class II - Mild symptoms (mild shortness of breath and/or angina) and slight limitation during ordinary activity. [ ] Class III - Marked limitation in activity due to symptoms, even during usne-ritp-mdwgbhiv activity, e.g. walking short distances (20-100 m). Comfortable only at rest. [ ] Class IV - Severe limitations. Experiences symptoms even while at rest. Mostly bedbound patients. Past Medical History Past Medical History: Diagnosis Date Arthritis CAD (coronary artery disease) Cardiac angina Essential hypertension, benign GERD (gastroesophageal reflux disease) Hyperlipidemia Hypothyroidism Past Surgical History: Procedure Laterality Date CORONARY STENT PLACEMENT N/A 04/11/2021 Laterality: N/A; Surgeon: Shalom Varghese MD; Location: [facility] Family History History reviewed. No pertinent family history. Social History reports that he has never smoked. He has never used smokeless tobacco. He reports current alcohol use of about 4.0 - 6.0 standard drinks of alcohol per week. He reports current drug use. Drug: Marijuana. Social History Tobacco Use Smoking Status Never Smoker Smokeless Tobacco Never Used Social History Substance and Sexual Activity Alcohol Use Yes Alcohol/week: 4.0 - 6.0 standard drinks Types: 4 - 6 Cans of beer per week Allergies No Known Allergies Current Medication Current Outpatient Medications Medication Sig Dispense Refill aspirin 81 MG Chew Tab chewable tablet Chew 1 tablet daily every morning. (Patient taking differently: Chew 162 mg daily every morning.) 300 tablet atorvastatin 80 MG tablet Take 80 mg by mouth daily. clopidogrel 75 MG tablet Take 8 tablets by mouth once on 04/12/21, then beginning on 04/13/21 take 1 tablet by mouth daily. 37 tablet 0 clopidogrel 75 MG tablet Take 1 tablet by mouth daily. 30 tablet 11 diltiazem 300 MG Cap SR 24HR Take 360 mg by mouth daily. lansoprazole [address] capsule Take 30 mg by mouth daily. levothyroxine 100 MCG tablet Take 137 mcg by mouth daily. losartan 50 MG tablet Take 100 mg by mouth daily. Milk Thistle 200 MG capsule Take 240 mg by mouth. Multiple Vitamins-Minerals (CENTRUM SILVER PO) Take by mouth. isosorbide mononitrate 30 MG Tab SR 24 HR tablet XL Take 30 mg by mouth daily every morning. HAS NOT STARTED YET pravastatin 40 MG tablet Take 40 mg by mouth daily. No current facility-administered medications for this visit. Physical Exam Vitals: 05/13/22 1314 BP: (!) 166/98 Pulse: 74 Resp: 16 Temp: 98.3 degrees F (36.8 degrees C) TempSrc: Oral SpO2: 98% Weight: 66.7 kg (147 lb) Height: 1.753 m (5' 9 ) General appearance: alert, cooperative, appears stated age Lungs: clear bilaterally Heart: regular rate and rhythm, no murmur noted Abdomen: soft, rounded Extremities: no lower extremity edema. Pulses: radial 2+ and symmetric Skin: Warm and dry. Musculoskeletal: gait is coordinated and symmetrical Neurologic: no gross focal deficits noted. Psych: appropriate mood and affect for clinical situation Diagnostic Results/Procedures- Reviewed with Dr. Palacios Heart Catheterization 04/2021 Percutaneous Coronary Intervention (PCI): 1) Successful PCI of the 70% stenosis in the mid first obtuse marginal (OM1) branch of the left circumflex artery with a Synergy XD 3.5 x 20 mm drug eluting stent. 2) Successful PCI of the 85% stenosis in the ostial/proximal ramus intermedius artery with overlapping Synergy XD 3.0 x 16 mm and 2.5 x 16 mm drug eluting stents. Instantaneous Wave-Free Ratio (iFR): 1) There is a 50-60% stenosis in the proximal OM1 with an iFR of 0.98 representing a non-significant physiological stenosis, treat medically. Left Heart Catheterization: 1) Notice in change in exercise tolerance and possibly mild dyspnea. 2) The LVEDP is normal at ~ 10 mmHg. 3) There is no significant LV-Ao gradient on pullback (LV 150/10 mmHg and Ao 150/75 mmHg). Echocardiogram 03/18/22 Overall: - Overall, abnormal exercise stress echocardiogram: normal echo wall motion at rest and stress with ECG positive for [address] depressions in the inferior and anterior leads. Echo portion of the exam: Baseline echo: resting left ventricular ejection fraction 60-65%. Post exercise echo: globally augmented left ventricular ejection fraction to >70%. Wall motion: no resting or inducible wall motion abnormalities. Good image quality. Exercise ECG portion of the exam: Baseline ECG: normal sinus rhythm with normal/interpretable ST segment at rest. Stress ECG: at peak stress, there were [address] depression in the inferior and anterior leads resolved to baseline within 5 minutes of recovery. No angina induced with adequate stress level (94% age-predicted maximum HR). Exercise/hemodynamics: Excellent exercise capacity for age (11 min, 13.4 METs, 172% of predicted) with normal blood pressure and heart rate response to exercise. Arrhythmias: no significant arrhythmic events. Symptoms: with peak exercise, the patient developed no chest pain. Test was terminated due to fatigue. - Overall, abnormal exercise stress echocardiogram: positive ECG without wall motion abnormalities at rest and stress. Imaging 03/02/21 CT chest Lab Results Component Value Date HGB 15.2 04/11/2021 No results found for: HGBA1C IMPRESSION: Antonio Mcknight is a 62 y.o. male with anomalous LAD. 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 RECOMMENDATIONS: Patient evaluated with Dr. Palacios and given the above data, Antonio Mcknight would benefit from follow up with cardiology. No indication for cardiac surgery as his LAD does not have a malignant course. Jannie Bowman APRN-OFFICE SYSTEMS TECHNOLOGY INSTRUCTOR [facility] CardioThoracic Surgery Nurse Practitioner P: [phone] F: [phone] CARDIAC SURGERY - ATTENDING Today I had the pleasure of seeing Antonio Mcknight is a 62 y.o. male with [employer] Bowman [employer]. The patient was referred to me for coronary artery anomaly in the setting of CP. I have reviewed the patient's history, medications, and current complaints. Please see note for details regarding these. I have personally reviewed the imaging in regards to this issue and results are as follows: Echocardiogram: stress test last month was negative Cardiac Catheterization: last done 1 year ago during stent placement CT: benign course of LAD off RCA At this time, I feel we should proceed with ongoing medical care. LAD does not have a malignant course. Stress test was negative. Hodan Palacios MD [address] [place] [address] Office: [phone] documented in this encounter [facility] 03-19-2022 Telephone encount er Note Note below faxed as requested. [facility] Miscellaneous Notes Formattin g of this note might be different from the original. Note below faxed as requested. Called patient and reviewed echocardiogram stress test below. Though ECG portion positive, imaging was normal during stress including no inducible wall motion abnormalities, and patient exercised for 13 METS without chest pain. Will place a referral to cardiac surgery for their input though given normal imaging during stress with no symptoms, not clear if risk of surgery outweighs potential benefit; patient to resume care with primary order packer. [facility] Staff: Please send a copy of this note to patient's order packer, Dr Ben Martínez, and PCP. Thank you. Shalom Varghese MD child care nurse Department of Medicine Division of Cardiovascular Medicine [facility] Echocardiogram Treadmill Stress Test: 03/18/22 Overall: - Overall, abnormal exercise stress echocardiogram: normal echo wall motion at rest and stress with ECG positive for [address] depressions in the inferior and anterior leads. - Echo portion of the exam: Baseline echo: resting left ventricular ejection fraction 60-65%. Post exercise echo: globally augmented left ventricular ejection fraction to >70%. Wall motion: no resting or inducible wall motion abnormalities. Good image quality. - Exercise ECG portion of the exam: Baseline ECG: normal sinus rhythm with normal/interpretable ST segment at rest. Stress ECG: at peak stress, there were [address] depression in the inferior and anterior leads resolved to baseline within 5 minutes of recovery. No angina induced with adequate stress level (94% age-predicted maximum HR). Exercise/hemodynamics: Excellent exercise capacity for age (11 min, 13.4 METs, 172% of predicted) with normal blood pressure and heart rate response to exercise. Arrhythmias: no significant arrhythmic events. Symptoms: with peak exercise, the patient developed no chest pain. Test was terminated due to fatigue. - Overall, abnormal exercise stress echocardiogram: positive ECG without wall motion abnormalities at rest and stress. documented in this encounter [facility] 03-19-2022 Telephone encount er Note Called patient and reviewed echocardiogram stress test below. Though ECG portion positive, imaging was normal during stress including no inducible wall motion abnormalities, and patient exercised for 13 METS without chest pain. Will place a referral to cardiac surgery for their input though given normal imaging during stress with no symptoms, not clear if risk of surgery outweighs potential benefit; patient to resume care with primary order packer. [facility] Staff: Please send a copy of this note to patient's order packer, Dr Ben Martínez, and PCP. Thank you. Shalom Varghese MD child care nurse Department of Medicine Division of Cardiovascular Medicine [facility] Echocardiogram Treadmill Stress Test: 03/18/22 Overall: - Overall, abnormal exercise stress echocardiogram: normal echo wall motion at rest and stress with ECG positive for [address] depressions in the inferior and anterior leads. - Echo portion of the exam: Baseline echo: resting left ventricular ejection fraction 60-65%. Post exercise echo: globally augmented left ventricular ejection fraction to >70%. Wall motion: no resting or inducible wall motion abnormalities. Good image quality. - Exercise ECG portion of the exam: Baseline ECG: normal sinus rhythm with normal/interpretable ST segment at rest. Stress ECG: at peak stress, there were [address] depression in the inferior and anterior leads resolved to baseline within 5 minutes of recovery. No angina induced with adequate stress level (94% age-predicted maximum HR). Exercise/hemodynamics: Excellent exercise capacity for age (11 min, 13.4 METs, 172% of predicted) with normal blood pressure and heart rate response to exercise. Arrhythmias: no significant arrhythmic events. Symptoms: with peak exercise, the patient developed no chest pain. Test was terminated due to fatigue. - Overall, abnormal exercise stress echocardiogram: positive ECG without wall motion abnormalities at rest and stress. [facility] Work Phone: 02-28-2022 History of Presen t illness Narrative Antonio Mcknight is a 62 y.o. male who has a history of coronary artery disease who presents for a second opinion. Primary order packer: Dr Ben Martínez Patient had some rest chest pain, however, does not occur with exertion. He underwent a stress test on 01/29/22 that demonstrated no ischemia by imaging and no angina. Patient does not experience LE edema, orthopnea, PND, syncope or palpitations. Exercise: treadmill, playing drums, and 10,000 to 15,000 steps daily and tolerating without symptoms. Patient recently retired. Past Medical History: - Coronary artery disease - PCI [id number] XD 3.5 x 20 mm drug eluting stent on 04/11/21 - PCI ostial/proximal ramus intermedius Synergy XD 3.0 x 16 mm and 2.5 x 16 mm drug eluting stents on 04/11/21 - Hypertension - Hyperlipidemia - GERD - Hypothyroidism Past Social History: Social History Tobacco Use Smoking status: Never Smoker Smokeless tobacco: Never Used Substance Use Topics Alcohol use: Yes Alcohol/week: 4.0 - 6.0 standard drinks Types: 4 - 6 Cans of beer per week Drug use: Yes Types: Marijuana Comment: last edible approx. 1 month ago No Known Allergies Current Outpatient Medications Medication Sig Dispense Refill aspirin 81 MG Chew Tab chewable tablet Chew 1 tablet daily every morning. (Patient taking differently: Chew 162 mg daily every morning.) 300 tablet atorvastatin 80 MG tablet Take 80 mg by mouth daily. clopidogrel 75 MG tablet Take 1 tablet by mouth daily. 30 tablet 11 diltiazem 300 MG Cap SR 24HR Take 360 mg by mouth daily. isosorbide mononitrate 30 MG Tab SR 24 HR tablet XL Take 30 mg by mouth daily every morning. HAS NOT STARTED YET lansoprazole [address] capsule Take 30 mg by mouth daily. levothyroxine 100 MCG tablet Take 137 mcg by mouth daily. losartan 50 MG tablet Take 100 mg by mouth daily. Milk Thistle 200 MG capsule Take 240 mg by mouth. Multiple Vitamins-Minerals (CENTRUM SILVER PO) Take by mouth. clopidogrel 75 MG tablet Take 8 tablets by mouth once on 04/12/21, then beginning on 04/13/21 take 1 tablet by mouth daily. (Patient not taking: Reported on 02/28/2022) 37 tablet 0 pravastatin 40 MG tablet Take 40 mg by mouth daily. No current facility-administered medications for this visit. Review of Systems (ROS): + chest pain, occasionally lightheadedness. ROS reviewed and negative unless otherwise stated. Physical Exam: Blood pressure 150/88, pulse 80, height 1.753 m (5' 9 ), weight 68.6 kg (151 lb 3.2 oz). Gen - well nourished; alert and orientated x 3, mood normal Head & Neck- normocephalic; no JVD Lungs- clear to auscultation bilateral without rales, rhonchi, wheezing; good air movement bilateral; no use of accessory muscles CV- RRR without murmurs, gallops, rubs Abd- non-tender; non-distended; soft; +BS; no rebound/guarding Neuro- CN II-XII intact, no gross deficits; gait normal Extr- no edema bilateral; warm distal extremities Skin- no facial rashes Lab Results Component Value Date WBC 5.03 04/11/2021 Lab Results Component Value Date HGB 15.2 04/11/2021 Lab Results Component Value Date PLATELET 212 04/11/2021 Lab Results Component Value Date SODIUM 135 04/11/2021 POTASSIUM 3.7 04/11/2021 CHLORIDE 100 04/11/2021 CO2 24 04/11/2021 BUN 10 04/11/2021 CREATSERUM 0.89 04/11/2021 Lab Results Component Value Date ALT 43 04/11/2021 AST 29 04/11/2021 [id number] [facility]IA - personally reviewed Transthoracic Echocardiogram: (scanned) 03/02/21 - LVEF 60% - mild TR - RVSP 22 mmHg Myocardial Perfusion Study: (scanned) 01/29/22 - exercised for 10 mins achieving 95% predicated max heart rate achieving 13.4 METS - ECG with about [address] depression in the inferior leads and V6, upsloping ST depression in V4 and V5 - no imaging evidence of ischemia or infarction - LVEF > 70% Coronary Angiography: 03/23/21 It is a right dominant system. The left main is normal. The LAD has an anomalous take-off from the right coronary cusp. It has 20% proximal and 30% mid segment stenosis. The ramus has a 85% ostial stenosis The circumflex is a large caliber vessel with a 30% proximal stenosis. It gives off a large OM1 which has serial 50% and 70% stenoses. The RCA is moderate caliber with moderate diffuse stenosis. - Hemodynamic Results: LVEDP is 3 mm Hg; there is no aortic valve gradient. Percutaneous Coronary Intervention (PCI): 04/11/21 1) Successful PCI of the 70% stenosis in the mid first obtuse marginal (OM1) branch of the left circumflex artery with a Synergy XD 3.5 x 20 mm drug eluting stent. 2) Successful PCI of the 85% stenosis in the ostial/proximal ramus intermedius artery with overlapping Synergy XD 3.0 x 16 mm and 2.5 x 16 mm drug eluting stents. - Instantaneous Wave-Free Ratio (iFR): 1) There is a 50-60% stenosis in the proximal OM1 with an iFR of 0.98 representing a non-significant physiological stenosis, treat medically. - Left Heart Catheterization: 1) Notice in change in exercise tolerance and possibly mild dyspnea. 2) The LVEDP is normal at ~ 10 mmHg. 3) There is no significant LV-Ao gradient on pullback (LV 150/10 mmHg and Ao 150/75 mmHg). Assessment and Plan: Antonio Mcknight is a 62 y.o. male who has a history of coronary artery disease who presents for a second opinion. 1. Coronary artery disease (CAD): History of anomalous coronary artery, see below for further details. History of PCI 04/2021 with ARNOLD to OM1 and ramus intermedius arteries. Patient without exertional angina. Records including TTE and myocardial perfusion study above reviewed and no evidence of ischemia and infarction by imaging. ECG personally reviewed as noted above. 2. History of PCI: as noted above. Continue aspirin 81 mg daily lifelong uninterrupted due to coronary artery stent. Continue Plavix 75 mg daily for at least 6 to 12 months uninterrupted from time of last coronary artery stent placement with reevaluation at that time with outpatient order packer. 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 To define course of LAD, a CT coronary angiogram has been ordered; if course is malignant (coursing between aorta and pulmonary artery) refer to cardiac surgery for further evaluation. To note, the patient does not experience angina and there is no evidence of ischemia and infarction by imaging. 4. Hypertension: Blood pressure is elevated today. Continue taking Losartan 100 mg daily and Cardizem 360 mg daily followed by primary care physician (PCP) including labs. Patient to follow-up with PCP for further management. 5. Hyperlipidemia: Continue Atorvastatin 80 mg daily, followed by PCP including labs. Patient to resume care with primary order packer. If CT shows malignant course of LAD, refer to cardiac surgery. 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 Anomalous coronary artery origin- Primary Congenital coronary artery anomaly [facility] Congenital coronary artery anomaly- Primary [facility] Consultation (Routine) - New Request Specialty Diagnoses / Procedures Referred By Anaya pepper Referred To Contact Cardiac Surgery Diagnoses Anomalous coronary artery origin Shalom Varghese MD [address] [place] [address] Referral ID Status Reason Start Date Expiration Date V isits Requested Visits Authorized [id number] New Request 03/19/2022 04/13/2023 1 1 [facility] Reason for Referral Specialty Diagnoses / Procedures Referred By Anaya pepper Referred To Contact Diagnoses Anomalous coronary artery origin Procedures CT ANGIO CARDIAC WITH CORONARY ARTERIES WA CHG CT ANGIO HRT CORNRY ART/BYPASS GRFTS CONTRST 3D POST Shalom Varghese MD [address] [place] [address] Referral ID Status Reason Start Date Expiration Date V isits Requested Visits Authorized [id number] Auth Not Needed 02/28/2022 03/25/2023 1 1 Specialty Diagnoses / Procedures Referred By Anaya pepper Referred To Contact Diagnoses Anomalous coronary artery origin Chest pain, unspecified type Procedures ECHOCARDIOGRAM TREADMILL STRESS TEST WA ECHO TTHRC R-T 2D W/WO M-MODE REST&STRS CONT ECG WA DOPPLER ECHO HEART,LIMITED,F/U WA DOPPLER COLOR FLOW VELOCITY MAP Shalom Varghese MD [address] [place] [address] Referral ID Status Reason Start Date Expiration Date Visits Re quested Visits Authorized [id number] Closed 03/07/2022 04/01/2023 1 1 Advance Directives No Advanced Directives Records FoundDocuments on File Type Date Recorded 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 Power of Disability Manager 04/11/2021 Latest Code Status on File Code Status Date Activated Date Inactivated Comments Full Code 04/11/2021 3:13 PM Documents on File Type Date Recorded 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 [facility] Power of Disability Manager 04/11/2021 Latest Code Status on File Code Status Date Activated Date Inactivated Comments Full Code 04/11/2021 3:13 PM Summary Purpose Family History No Family History Records Found Additional Source Comments Reason for Visit (unrecogniz ed section and content) Specialty Diagnoses / Procedures Referred By Contact Referred To Contact Cardiovascular Medicine Diagnoses Atherosclerosis of [place] coronary artery without angina pectoris, unspecified whether [place] or transplanted heart Presence of coronary angioplasty implant and graft Precordial pain Abnormal result of other cardiovascular function study Ben Martínez MD [address] [facility], [address] [place] [phone] Shalom Varghese MD [address] [place] [address] Referral ID Status Reason Start Date Expiration Date V isits Requested Visits Authorized [id number] Pending Review 02/12/2022 03/09/2023 1 1 Specialty Diagnoses / Procedures Referred By Anaya t Referred To Contact Diagnoses Anomalous coronary artery origin Chest pain, unspecified type Procedures ECHOCARDIOGRAM TREADMILL STRESS TEST WA ECHO TTHRC R-T 2D W/WO M-MODE REST&STRS CONT ECG WA DOPPLER ECHO HEART,LIMITED,F/U WA DOPPLER COLOR FLOW VELOCITY MAP Shalom Varghese MD [address] [place] [address] Referral ID Status Reason Start Date Expiration Date Visits Re quested Visits Authorized [id number] Closed 03/07/2022 04/01/2023 1 1 Reason Onset Date Comments Results 03/19/2022 Specialty Diagnoses / Procedures Referred By Stephanieac t Referred To Contact Diagnoses Anomalous coronary artery origin Procedures CT ANGIO CARDIAC WITH CORONARY ARTERIES WA CHG CT ANGIO HRT CORNRY ART/BYPASS GRFTS CONTRST 3D POST Shalom Varghese MD [address] [place] [address] Referral ID Status Reason Start Date Expiration Date V isits Requested Visits Authorized [id number] Auth Not Needed 02/28/2022 03/25/2023 1 1 Reason Comments New Patient Specialty Diagnoses / Procedures Referred By Contac t Referred To Contact Cardiac Surgery Diagnoses Anomalous coronary artery origin Shalom Varghese MD [address] [facility] [place] [address] Referral ID Status Reason Start Date Expiration Date V isits Requested Visits Authorized [id number] New Request 03/19/2022 04/13/2023 1 1 Care Teams (unrecognized sec tion and content) Dye Tank Tender Relationship Specialty Start Date End Date Jeanne Arteaga MD [address], [place] [phone] PCP - General Family Medicine 03/23/21 Dye Tank Tender Relationship Specialty Start Date End Date Jeanne Arteaga MD [address] [place] [address] PCP - General Family Medicine 03/23/21 Dye Tank Tender Relationship Specialty Start Date End Date Jeanne Arteaga MD [address] [place] [address] PCP - General Family Medicine 03/23/21 Dye Tank Tender Relationship Specialty Start Date End Date Jeanne Arteaga MD [address] [place] [address] PCP - General Family Medicine 03/23/21 (unrecognized sect ion and content) No Status Records Found INFORMATION SOURCE (unrecogn ized section and content) FOR RECORDS PERTAINING TO PATIENTS WHO ARE OR HAVE BEEN ENROLLED IN A CHEMICAL DEPENDENCY/SUBSTANCEABUSE PROGRAM, SOME INFORMATION MAY BE OMITTED. This clinical summary was aggregated from multiple sources. Caution should be exercised in using it in the provision of clinical care. This summary normalizes information from multiple sources, and as a consequence, information in this document may materially change the coding, format and clinical context of patient data. In addition, data may be omitted in some cases. CLINICAL DECISIONS SHOULD BE BASED ON THE PRIMARY CLINICAL RECORDS. [facility]. provides no warranty or guarantee of the accuracy or completeness of information in this document.
[2024-01-02 12:24] LABS: Absolute Lymphocyte Count 1.78 X10^3/uL (0.83-4.51); Basophil% 0.9 % (0-1); Eosinophil# 0.16 X10^3/uL; Eosinophils% 3.6 % (0-5); Hematocrit 40.3 % (40-54); Hemoglobin 13.9 g/dL (13.0-16.5); Lymphocyte # 1.78 X10^3/ul (0.83-4.51); Lymphocyte % 39.6 % (19-41); Mean Corp Hgb Conc 34.5 g/dL (32-36); Mean Corpuscular Hgb 31.6 pg (27.0-32.0); Mean Corpuscular Volume 91.6 fL (80-94); Mean Platelet Vol. 8.8 fl (6.2-12.0); Monocyte# 0.54 X10^3/uL; Neutrophil # 1.95 X10^3/uL (2.7-7.7); Neutrophil % 43.5 % (47-70); Platelet Count 183 K/mm3 (150-450); RBC Distribution Width CV 13.2 % (11.6-14.6); RBC Distribution Width SD 44.3 fl (35.1-43.9); White Blood Count 4.5 K/mm3 (4.4-11.0)
[2024-01-02 12:25] LABS: Basophil# 0.04 X10^3/uL; NRBC Flagged by Analyzer 0 % (0-5)
[2024-01-02 12:42] LABS: ALB/GLOB Ratio 1.2 RATIO (0.9-2.4); AST(SGOT) 39 U/L (15-37); Alanine Aminotransfer ALT/SGPT 69 U/L (16-61); Alkaline Phosphatase 61 U/L (45-117); Anion Gap 7 (5-15); BUN 15 mg/dL (7-18); BUN/Creat Ratio 16.6 RATIO (10-20); Calcium,Total 9.1 mg/dL (8.5-10.1); Chloride 100 mmol/L (98-107); Cholesterol 147 mg/dL (200); EST Glomerular Filtration Rate 90 mL/min (>60); Est Glom Filt Rate - Afr Amer 109 mL/min (>60); Globulin 3.2 g/dL (2.2-4.2); Glucose 98 mg/dL (74-106); High Density Lipoprotein 50 mg/dL; Potassium 3.6 mmol/L (3.5-5.1); Protein, Total 7.2 g/dL (6.4-8.2); Sodium Level 133 mmol/L (136-145); T4 Free Direct 1.09 ng/dL (0.76-1.46); Triglycerides 151 mg/dL; Very Low Density Lipoprotein 30 mg/dL (5-40)
== END | disposition home or self-care (01) ==
LOC: MTLAB 10:28
PROVIDERS: PCP Family Medicine; Referring Provider Family Medicine; Visit Provider Family Medicine
DX: I10 Essential (primary) hypertension (principal); N40.1 Benign prostatic hyperplasia with lower urinary tract symptoms
CPT/HCPCS: 36415; 80053; 80061; 84153; 84439; 84443; 85025

== ENCOUNTER → 2024-05-20 | Outpatient (CLI) | payer MEDICARE, BC, SELFPAY ==
[2021-08-08 07:31] VITALS: BMI 21.9
[2024-05-20 13:07] LABS: ALB/GLOB Ratio 1.1 RATIO (0.9-2.4); AST(SGOT) 35 U/L (15-37); Alanine Aminotransfer ALT/SGPT 59 U/L (16-61); Alkaline Phosphatase 63 U/L (45-117); Anion Gap 9 (5-15); BUN 13 mg/dL (7-18); BUN/Creat Ratio 15.2 RATIO (10-20); Calcium,Total 9.5 mg/dL (8.5-10.1); Chloride 99 mmol/L (98-107); Creatinine, Serum 0.86 mg/dL (0.70-1.30); EST Glomerular Filtration Rate 95 mL/min (>60); Est Glom Filt Rate - Afr Amer 115 mL/min (>60); Globulin 3.5 g/dL (2.2-4.2); Glucose 98 mg/dL (74-106); Potassium 3.5 mmol/L (3.5-5.1); Protein, Total 7.5 g/dL (6.4-8.2); Sodium Level 134 mmol/L (136-145); T4 Free Direct 0.97 ng/dL (0.76-1.46); Thyroid Stim Hormone (TSH) 2.11 uIU/mL (0.358-3.74)
== END | disposition home or self-care (01) ==
LOC: MTLAB 10:09
PROVIDERS: PCP Family Medicine; Referring Provider Family Medicine; Visit Provider Family Medicine
DX: E03.9 Hypothyroidism, unspecified (principal)
CPT/HCPCS: 36415; 80053; 84439; 84443

== ENCOUNTER → 2024-07-14 | Outpatient (CLI) | payer MEDICARE, BC, SELFPAY ==
[2021-08-08 07:31] VITALS: BMI 21.9
[2024-07-14 12:28] LABS: Hemoglobin 13.6 g/dL (13.0-16.5); Mean Corp Hgb Conc 34.9 g/dL (32-36); Mean Corpuscular Hgb 31.9 pg (27.0-32.0); Mean Corpuscular Volume 91.5 fL (80-94); Mean Platelet Vol. 8.8 fl (6.2-12.0); Platelet Count 201 K/mm3 (150-450); RBC Distribution Width CV 12.5 % (11.6-14.6); RBC Distribution Width SD 41.4 fl (35.1-43.9); Red Blood Count 4.26 M/mm3 (4.6-6.2); White Blood Count 4.8 K/mm3 (4.4-11.0)
[2024-07-14 13:51] LABS: Hemoglobin A1c 5.1 % (3.8-5.6)
[2024-07-14 13:53] LABS: AST(SGOT) 37 U/L (15-37); Alanine Aminotransfer ALT/SGPT 61 U/L (16-61); Albumin, Serum 3.7 g/dL (3.2-5.0); Alkaline Phosphatase 68 U/L (45-117); Anion Gap 12 (5-15); BUN 11 mg/dL (7-18); BUN/Creat Ratio 12.5 RATIO (10-20); Calcium,Total 9.7 mg/dL (8.5-10.1); Chloride 100 mmol/L (98-107); Cholesterol 133 mg/dL (200); Creatinine, Serum 0.88 mg/dL (0.70-1.30); EST Glomerular Filtration Rate 93 mL/min (>60); Est Glom Filt Rate - Afr Amer 112 mL/min (>60); Globulin 3.7 g/dL (2.2-4.2); Glucose 95 mg/dL (74-106); High Density Lipoprotein 55 mg/dL; PSA,Total - Annual Screen 1.49 ng/mL (0.00-4.00); Potassium 3.4 mmol/L (3.5-5.1); Protein, Total 7.4 g/dL (6.4-8.2); Sodium Level 135 mmol/L (136-145); Triglycerides 122 mg/dL; Very Low Density Lipoprotein 24 mg/dL (5-40)
== END | disposition home or self-care (01) ==
LOC: MFPLAB 09:47
PROVIDERS: PCP Family Medicine; Visit Provider Family Medicine
DX: K21.9 Gastro-esophageal reflux disease without esophagitis (principal); R73.01 Impaired fasting glucose; Z12.5 Encounter for screening for malignant neoplasm of prostate; E78.1 Pure hyperglyceridemia; I10 Essential (primary) hypertension
CPT/HCPCS: 36415; 80053; 80061; 83036; 84153; 85027; G0103

== ENCOUNTER → 2024-07-23 | Outpatient (CLI) | payer MEDICARE, BC, SELFPAY ==
[2021-08-08 07:31] VITALS: BMI 21.9
--- NOTE | 2024-07-23 08:51 | AAAS_ITS ---
Reason For Study: AAA Screening Aorta Measurements Aorta Doppler Measurements Proximal aorta measures1.75cm x 1.85cm. in cross- Peak systolic flow velocities within the proximal sectional axis. aorta measure 80 cm/sec. Proximal aorta measures1.79cm. in longitudinal Peak systolic flow velocities within the mid aorta axis. measure 98 cm/sec. Mid aorta measures1.75cm x 1.71cm. in cross- Peak systolic flow velocities within the distal sectional axis. aorta measure 63 cm/sec. Mid aorta measures1.69cm. in longitudinal axis. Distal aorta measures1.61cm x 1.88cm. in cross- sectional axis. Distal aorta measures1.51cm. in longitudinal axis. Left Iliac Artery Left iliac artery measures 1.15cm x 1.23 cm. in the cross-sectional axis. Left iliac artery measures 1.12 cm. in the longitudinal axis. Peak systolic velocity in the left iliac artery measures 74 cm/sec. Right Iliac Artery Right iliac artery measures 1.06cm x 1.08 cm. in the cross-sectional axis. Right iliac artery measures 1.09 cm. in the longitudinal axis. Peak systolic velocity in the right iliac artery measures 85 cm/sec. Procedure Aorta IVC Iliac vasculature or bypass grafts [id number]. Exam performed in department. VL/AAA Screening Interpretation Summary Aorta patent, normal caliber Bilateral iliac arteries patent, normal caliber Ordering Physician: Alexis Arteaga Referring Physician: Alexis Arteaga Performed By: Minoo Hager, KACI, RVT
== END | disposition home or self-care (01) ==
LOC: CVS 08:48
PROVIDERS: PCP Family Medicine; Referring Provider Family Medicine; Visit Provider Family Medicine
DX: Z13.6 Encounter for screening for cardiovascular disorders (principal)
CPT/HCPCS: 76706

== ENCOUNTER 2025-02-24 13:30 | Outpatient (RCR) | payer MEDICARE, BC, SELFPAY ==
[2021-08-08 07:31] VITALS: BMI 21.9
--- NOTE | 2024-10-13 14:46 | HP.PTEVAL_ITS ---
Patient's Visit Information Visit Information Visit Information: ANTONIO MCKNIGHT is a 64 year old M referred to Physical Therapy by Dr. Robinson Hunter MD with a diagnosis of R SHOULDER. 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 PATIENT REPORTS HE IS PRETTY ACTIVE IN GENERAL. Disability: NO Present symptoms: R SHLD PAIN. PATIENT DENIES NUMBNESS AND TINGLING. DENIES INCISION TROUBLE. Present since: 12 YEARS AGO Getting Better, Getting Worse or Staying the Same: GETTING BETTER Pain Scale: Worst - 7/10 Least - 1/10 Currently: 11/12 Commenced as a result of: DR. WREN REPAIRED TORN LABRUM 12 YEARS AGO AFTER SLIPPED AND FELL. Worse: MOVING ARM OUT FROM BODY - CHICKEN WING, EXTERNALLY ROTATING IT TOO FAR, RAISING IT UP TOO FAR. PATIENT STATES IT HURTS IF HE OR HIS TAKE IT TO FAR WITH THE HOME EX'S. UNCOMFORTABLE SLEEPING IN RECLINER. Better: RESTING IT, ICE MACHINE, TYLONOL, HYDROCODONE - LAST ONE TAKEN WAS FRIDAY - 3 DAYS AGO Disturbed sleep: YES - SLEEPING IN RECLINER Previous history/Previous treatment: SEE ABOVE AND PT AFTER SURGERY. A NERVE WAS DAMAGED DURING SURGERY BUT EVENTUALLY FULL RECOVERY. This episode: TSA 10/04/24 Dizziness: NO Tinnitus: NO Nausea: NO Shortness of Breath: NO Difficulty Swallowing: NO Gait: NORMAL Imaging: PATIENT REPORTS IMAGING AFTER SURGERY LOOKS GREAT. OTHER: PATIENT REPORTS THEY ARE MOVING IN AUG 2025. PMH/Recent major surgery: Hyperlipidemia Presence of stent in coronary artery ~04/11/21 Atherosclerotic heart disease of [place] coronary artery without angina pectoris Abnormal cardiac CT angiography Congenital coronary artery anomaly Essential hypertension Hypothyroidism Chest pain Abnormal stress test History of heart artery stent S/P skin cancer resection History of arthroscopy of right shoulder Presence of coronary angioplasty implant and graft ~04/11/21 Objective Objective: THIS PATIENT AMBULATES INDEP'LY INTO PT WEARING A SLING ON HIS R UE. 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 HE NEEDS ASSIST DONNING AND DOFFING SLING. JULIA UE LIGHT TOUCH SENSATION IS GROSSLY INTACT AND SYMMETRICAL. R SHLD INCISION LOOKS GOOD WITHOUT ANY SIGNS OF INFECTION. MODERATE R SHLD AND UPPER ARM SWELLING AND TENDERNESS. GOOD AROM OF NECK, R ELBOW, FOREARM, WRIST AND HAND. PATIENT DENIES PAIN WITH R UE AROM TE STING. L ELBOW, WRIST AND HAND ROM WFL. L SHLD NT. R SHLD PROM: FLEX 80 DEG (ERP), ER 30 DEG (ERP). TREATMENT: HEP, PROTOCOL AND POC Balance/Special Test Scores Quick DASH Score: 54.5450 Goals Goal 1:: RESTORE R SHOULDER ROM WITHIN PARAMETERS OF PROTOCOL Goal Time Frame: 12-16 Weeks Goal 2:: RESTORE R UE STRENGTH TO WITHIN 80% OF L UE PROTOCOL/PHYSICIAN ORDERS ALLOW Goal Time Frame: 12-16 Weeks Goal 3:: PATIENT WILL REPORT 0-2/10 PAIN WITH ADL'S. Goal Time Frame: 12-16 Weeks Goal 4:: QUICK DASH SCORE OF 16 OR LESS Goal Time Frame: 12-16 Weeks Goal 5:: INDEP HEP Goal Time Frame: 12-16 Weeks Rehabilitation Potential Physical Therapy Diagnosis: R UE STIFFNESS AND WEAKNESS POST TSA 10/04/24 Rehabilitation Potential: Good Anticipated Interventions Patient/Client Instruction: Educate patient on: Condition, Plan of Care and Risk Factors For the Purpose of:: To improve self management Therapeutic Exercise to Include: Strength training, Postural training, Flexibilty training, Passive ROM, Active ROM and Scapular Strength/Stabilization For the Purpose of:: To decrease pain, To increase ROM, To improve muscle performance and motor function, To increase tolerance to activity/condition/position, To improve performance and independence with ADL's, To improve ability of physical actions for home/community/work/leisure, To decrease soft tissue restriction, To increase flexibility/ROM and To improve self management Cryotherapy (ice pack, ice massage): Yes For the Purpose of:: To decrease pain and To decrease swelling/inflammation Text: Thank you for the opportunity to evaluate your patient. For Medicare and Medicare HMO plans, please review the plan of care and approve it. It will need to be FAXED BACK to us at [phone] for Medicare purposes. For Medicare only, by signing this I certify the plan of care. Please let me know if there are questions or concerns regarding this plan of care. Physician Signature: Date:
--- NOTE | 2024-11-18 14:32 | HP.PTREVAL ---
Re-Evaluation Intro: Dr. Robinson Hunter MD, It has been my pleasure to treat ANTONIO MCKNIGHT over the last 11 visits for R SHOULDER 10/04/24. Please see the progress note below for an update on the physical therapy plan of care! Subjective Subjective: PATIENT REPORTS HE IS HAPPY WITH HOW THERAPY IS GOING. SLEEPING IN BED WELL NOW. STATES HE CAN PLAY DRUMS IN SMALL ROM NOW. PAIN IS RANGING 0/10 TO 4/10. INCREASED PAIN WITH STRETCHING AT END OF THE AVAILABLE ROM. Objective Objective/Function: PATIENT WAS SEEN TODAY FOR RE-ASSESSMENT OF PROGRESS TOWARD THE SET PT GOALS AND THE NEED FOR FURTHER PHYSICAL THERAPY VS READINESS FOR DISCHARGE. THIS PATIENT IS MAKING GOOD PROGRESS TOWARD ALL PT GOALS AND IS A GOOD CANDIDATE TO CONTINUE PT BASED ON PROGRESS MADE AND ROOM FOR FURTHER IMPROVMENT. UPON EXAM TODAY: AAROM R SHLD STANDING: FLEX 111 DEG ABD 116 DEG PROM R SHLD SUPINE: FLEX 150 DEG ABD 114 DEG IR 70 DEG ER 65 DEG (ROT W/60 DEG ABD) Plan Plan Plan: CONT PT INCREASING TO 3 TIMES A WK X 4 WEEKS. NEED TO WORK TOWARDS FULL ROM THEN CAN START RESISTANCE. CONTINUE PHASE ONE AND PHASE TWO PER PROTOCOL IN WORKROOM. ACTIVE ROM OK TOO BUT HOLD SHOULDER WEIGHTS AND BANDS UNTIL FULL AROM. BICEP CURLS OK WITH LIGHT RESISTANCE. Balance/Gait/Functional tests Balance/Special Test Scores Quick DASH Score: 15.9075 Goals Goals Goal 1:: RESTORE R SHOULDER ROM WITHIN PARAMETERS OF PROTOCOL Goal Time Frame: 12-16 Weeks Goal Progress: Progressing Goal 2:: RESTORE R UE STRENGTH TO WITHIN 80% OF L UE PROTOCOL/PHYSICIAN ORDERS ALLOW Goal Time Frame: 12-16 Weeks Goal Progress: Progressing Goal 3:: PATIENT WILL REPORT 0-2/10 PAIN WITH ADL'S. Goal Time Frame: 12-16 Weeks Goal Progress: Progressing Goal 4:: QUICK DASH SCORE OF 16 OR LESS Goal Time Frame: 12-16 Weeks Goal Progress: Progressing Goal 5:: INDEP HEP Goal Time Frame: 12-16 Weeks Goal Progress: Progressing Anticipated Interventions Anticipated Interventions Patient/Client Instruction: Educate patient on: Condition, Plan of Care and Risk Factors For the Purpose of:: To improve self management Therapeutic Exercise to Include: Strength training, Postural training, Flexibilty training, Passive ROM, Active ROM and Scapular Strength/Stabilization For the Purpose of:: To decrease pain, To increase ROM, To improve muscle performance and motor function, To increase tolerance to activity/condition/position, To improve performance and independence with ADL's, To improve ability of physical actions for home/community/work/leisure, To decrease soft tissue restriction, To increase flexibility/ROM and To improve self management Cryotherapy (ice pack, ice massage): Yes For the Purpose of:: To decrease pain and To decrease swelling/inflammation Re-Evaluation Ending Re-evaluation ending: Please do not hesitate to contact me at [phone] by phone or if you have questions or concerns regarding this new plan of care! Sincerely, Sarah Cervantes, PT, Cert MDT
--- NOTE | 2024-12-16 14:29 | HP.PTREVAL ---
Re-Evaluation Intro: Dr. Robinson Hunter MD, It has been my pleasure to treat ANTONIO MCKNIGHT over the last 23 visits for R SHOULDER 10/04/24. Please see the progress note below for an update on the physical therapy plan of care! Subjective Subjective: UPON ARRIVAL PATIENT STATES WE ARE DEFINATELY ON THE RIGHT PATH. I MIGHT HAVE HAD A BIT OF A SET BACK FRIDAY [id number] ON THE BIKE BUT NOW THERE IS JUST A LITTLE SORENESS THAT COMES AND GOES. I'VE BEEN VERY PLEASED WITH EVERYBODY. PATIENT STATES THERE IS NO PAIN RIGHT NOW. WOULD LIKE TO GO BACK TO TWO DAYS A WEEK AND DO MORE AT HOME. WANTS TO LEARN WHAT TO DO AND PROPER TECHNIQUE. PATIENT IS HAPPY TO REPORT HE CAN SLEEP ON HIS R SIDE NOW AND NOW CAN PUT HIS HANDS BEHIND HIS HEAD - STATES THERE IS NO WAY I COULD DO THAT THE LAST TIME I SAW YOU. Objective Objective/Function: PATIENT WAS SEEN TODAY FOR RE-ASSESSMENT OF PROGRESS TOWARD THE SET PT GOALS AND THE NEED FOR FURTHER PHYSICAL THERAPY VS READINESS FOR DISCHARGE. THIS PATIENT IS MAKING GOOD PROGRESS WITH PT AND IS A GOOD CANDIDATE TO CONTINUE PT TO PROGRESS TO PHASE III OF TOTAL SHLD PROTOCOL. PATIENT IS AGREEABLE. UPON EXAM TODAY: AAROM R SHLD STANDING: FLEX 142 DEG ABD 131 DEG PROM R SHLD SUPINE: FLEX 168 DEG ABD 150 DEG IR 65 DEG ER 85 DEG (ROT W/80 DEG ABD) STRENGTH: SHLD FLEX R 16.1 L 28.3 EXT R 27.0 L 23.7 ABD R 40.0 L 13.5 IR R 25.9 L 10.7 ER R 22.0 L 6.2 ELBOW FLEX R 31.0 L 19.6 ELBOW EXT R 21.3 L 17.7 Plan Plan Plan: CONT PT 2 TIMES A WK X 4-5 WEEKS. CONT TO WORK TOWARDS FULL ROM AND WORK INTO PHASE III OF PROTOCOL TOLERATED WITH FOCUS ON HEP WITH WRITTEN INSTRUCTIONS. Balance/Gait/Functional tests Balance/Special Test Scores Quick DASH Score: 9.0900 Goals Goals Goal 1:: RESTORE R SHOULDER ROM WITHIN PARAMETERS OF PROTOCOL Goal Time Frame: 12-16 Weeks Goal Progress: Progressing Goal 2:: RESTORE R UE STRENGTH TO WITHIN 80% OF L UE PROTOCOL/PHYSICIAN ORDERS ALLOW Goal Time Frame: 12-16 Weeks Goal Progress: Progressing Goal 3:: PATIENT WILL REPORT 0-2/10 PAIN WITH ADL'S. Goal Time Frame: 12-16 Weeks Goal Progress: Progressing Goal 4:: QUICK DASH SCORE OF 16 OR LESS Goal Time Frame: 12-16 Weeks Goal Progress: Goal Met Goal 5:: INDEP HEP Goal Time Frame: 12-16 Weeks Goal Progress: Progressing Anticipated Interventions Anticipated Interventions Patient/Client Instruction: Educate patient on: Condition, Plan of Care and Risk Factors For the Purpose of:: To improve self management Therapeutic Exercise to Include: Strength training, Postural training, Flexibilty training, Passive ROM, Active ROM and Scapular Strength/Stabilization For the Purpose of:: To decrease pain, To increase ROM, To improve muscle performance and motor function, To increase tolerance to activity/condition/position, To improve performance and independence with ADL's, To improve ability of physical actions for home/community/work/leisure, To decrease soft tissue restriction, To increase flexibility/ROM and To improve self management Cryotherapy (ice pack, ice massage): Yes For the Purpose of:: To decrease pain and To decrease swelling/inflammation Re-Evaluation Ending Re-evaluation ending: Please do not hesitate to contact me at [phone] by phone or if you have questions or concerns regarding this new plan of care! Sincerely, Sarah Cervantes, PT, Cert MDT
--- NOTE | 2025-01-20 15:09 | HP.PTREVAL_ITS ---
Re-Evaluation Intro: Dr. Robinson Hunter MD, It has been my pleasure to treat ANTONIO MCKNIGHT over the last 32 visits for R SHOULDER 10/04/24. Please see the progress note below for an update on the physical therapy plan of care! Subjective Subjective: MY FLEXIBILITY IS PRETTY GOOD. MY STRENGTH IS WHAT HAS BEEN THE CHALLENGE. WANTS TO CONTINUE PT TO TRY GAIN MORE STRENGTH. PATIENT REPORTS HE IS DOING A LOT BETTER NOW THAN HE WAS DOING BEFORE SURGERY. HE STATES HE IS NOW ABLE TO CARRY A FEW LBS AWAY FROM HIS BODY, ROLL OVER IN BED, CUT FOOD WITH OUT PAIN LIKE HE HAD BEFORE SURGERY. Objective Objective/Function: PATIENT WAS SEEN TODAY FOR RE-ASSESSMENT OF PROGRESS TOWARD THE SET PT GOALS AND THE NEED FOR FURTHER PHYSICAL THERAPY VS READINESS FOR DISCHARGE. THIS PATIENT IS CONTINUING TO MAKE SLOW PROGRESS WITH PT AND IS A GOOD CANDIDATE TO CONTINUE PT TO PROGRESS TO FURTHER WITH PHASE III OF TOTAL SHLD PROTOCOL BUT DECREASING TO 2 VS 3 TIMES PER WEEK TO HELP TRANSITION TO INDEP EX PROGRAM. PATIENT IS AGREEABLE. UPON EXAM TODAY: AROM R SHLD STANDING: FLEX 152 DEG ABD 140 DEG PROM R SHLD SUPINE: FLEX 163 DEG ABD 150 DEG IR 85 DEG ER 85 DEG (ROT W/90 DEG ABD) STRENGTH (R MEASURED IN [employer] LBS TODAY AND COMPARED TO L TAKEN LAST RE- CHECK): SHLD FLEX L 28.3 R 21.2 EXT L 27.0 R 29.1 ABD L 40.0 R 24.9 IR L 25.9 R 15.7 ER L 22.0 R 8.3 ELBOW FLEX L 31.0 R 26.8 ELBOW EXT L 21.3 R 21.2 PATIENT C/O END RANGE PAIN WITH ROM TESTING AND PAIN WITH STRENGTH TESTING INTO SHLD FLEXION, ABD, IR, AND ER. Plan Plan Plan: CONT PT 2 TIMES A WK X 4-5 WEEKS. CONT TO WORK TOWARDS FULL ROM AND CONTINUE TO WORK INTO PHASE III OF PROTOCOL TOLERATED WITH FOCUS ON HEP WITH WRITTEN INSTRUCTIONS. Balance/Gait/Functional tests Balance/Special Test Scores Quick DASH Score: 11.3625 Goals Goals Goal 1:: RESTORE R SHOULDER ROM WITHIN PARAMETERS OF PROTOCOL Goal Time Frame: 12-16 Weeks Goal Progress: Progressing Goal 2:: RESTORE R UE STRENGTH TO WITHIN 80% OF L UE PROTOCOL/PHYSICIAN ORDERS ALLOW Goal Time Frame: 12-16 Weeks Goal Progress: Progressing Goal 3:: PATIENT WILL REPORT 0-2/10 PAIN WITH ADL'S. Goal Time Frame: 12-16 Weeks Goal Progress: Progressing Goal 4:: QUICK DASH SCORE OF 16 OR LESS Goal Time Frame: 12-16 Weeks Goal Progress: Goal Met Goal 5:: INDEP HEP Goal Time Frame: 12-16 Weeks Goal Progress: Progressing Anticipated Interventions Anticipated Interventions Patient/Client Instruction: Educate patient on: Condition, Plan of Care and Risk Factors For the Purpose of:: To improve self management Therapeutic Exercise to Include: Strength training, Postural training, Flexibilty training, Passive ROM, Active ROM and Scapular Strength/Stabilization For the Purpose of:: To decrease pain, To increase ROM, To improve muscle performance and motor function, To increase tolerance to activity/condition/position, To improve performance and independence with ADL's, To improve ability of physical actions for home/community/work/leisure, To decrease soft tissue restriction, To increase flexibility/ROM and To improve self management Cryotherapy (ice pack, ice massage): Yes For the Purpose of:: To decrease pain and To decrease swelling/inflammation Re-Evaluation Ending Re-evaluation ending: Please do not hesitate to contact me at [phone] by phone or if you have questions or concerns regarding this new plan of care! Sincerely, Sarah Cervantes PT, Cert MDT
--- NOTE | 2025-02-24 14:22 | HP.PTDCSUM ---
Discharge Summary D/C summary: It has been my pleasure to treat ANTONIO MCKNIGHT referred by Dr. Robinson Hunter MD, with the diagnosis of R SHOULDER 10/04/24 for a total of 42 visit(s). Discharge Date: 02/24/25 Please see the following information for a summary of their discharge status. Subjective Subjective: PATIENT REPORTS HE IS GLAD HE DID ANOTHER 4 WKS OF REHAB AND HE IS HAPPY WITH HIS OUTCOME AT THIS POINT. HE STATES HE PLANS TO CONTINUE HIS HEP AND FOLLOW UP WITH DR. HUNTER 03/30/25 PLANNED. Pain Right Shoulder: Pain Intensity (Out of 10): 0 Overall Improvement % Improvement: 95 Objective Objective/Function: PATIENT WAS SEEN TODAY FOR RE-ASSESSMENT OF PROGRESS TOWARD THE SET PT GOALS AND THE NEED FOR FURTHER PHYSICAL THERAPY VS READINESS FOR DISCHARGE. UPON EXAM TODAY: AROM R SHLD STANDING: FLEX 158 DEG ABD 143 DEG PROM R SHLD SUPINE: FLEX 170 DEG ABD 150 DEG IR 85 DEG ER 90 DEG (ROT W/90 DEG ABD) STRENGTH: PATIENT REQUESTING TO SKIP MUSCLE TESING TODAY STATING HE IS GOOD. REPORTS HE IS BACK TO [facility] AND ONLY LIMITED BY ENDURANCE. STATES HE CAN DO PRETTY MUCH EVERYTHING HE WANTS TO DO NOW. LAST EX SESSION 02/21/25 CONSISTED OF THE FOLLOWING: UBE: L3 x2 min ea F/B for Right shld ROM and blood flow (indep). Pulleys: Flex/Scap/IR 2x15 ea - performed in circuit. Right AAROM Large Wall Circles: 2x15 ea CW/CCW. Bilat LAE w/rope: 40# 3x12. Mid Row: 40# 3x12. 1a. Right Shld IR arm propped 90/90: Green tube 3x12. 1b. Right Shld ER arm propped 90/90: 0# 3x12. Offset Unstable Counter Push-Ups: ball on Right side 3x15. (29) Rear Delt: 10# 3x12 - arms 8. (29) Fwd Fly: 10# 3x12 - arms 2. (30) Lat Pulldown: 30# 3x12. (6) Bilat Serratus Press: 25# 3x12 on Chest Press Machine. Goals Goal 1:: RESTORE R SHOULDER ROM WITHIN PARAMETERS OF PROTOCOL Goal Progress: Progressing Goal 2:: RESTORE R UE STRENGTH TO WITHIN 80% OF L UE PROTOCOL/PHYSICIAN ORDERS ALLOW Goal Progress: Progressing Goal 3:: PATIENT WILL REPORT 0-2/10 PAIN WITH ADL'S. Goal Progress: Progressing Goal 4:: QUICK DASH SCORE OF 16 OR LESS Goal Progress: Goal Met Goal 5:: INDEP HEP Goal Progress: Goal Met Plan Plan: D/C TO INDEP EX. D/C Information d/c sentence: If there are questions or concerns regarding this patient's physical therapy, please feel free to call me at [phone]. Thank you for the referral of this patient. Sincerely, Sarah Cervantes, PT, Cert MDT Balance/Gait/Functional tests Balance/Special Test Scores Quick DASH Score: 9.0900 Improvement % Improvement: 95
== END 2025-02-24 19:00 | disposition home or self-care (01) ==
LOC: PT 13:30
PROVIDERS: PCP Family Medicine; Visit Provider Orthopaedic Surgery
DX: M19.011 Primary osteoarthritis, right shoulder (principal); Z96.611 Presence of right artificial shoulder joint
CPT/HCPCS: 97110; 97140; 97162; 97530

== ENCOUNTER → 2025-07-14 | Outpatient (CLI) | payer MEDICARE, BC, SELFPAY ==
[2021-08-08 07:31] VITALS: BMI 21.9
[2025-07-14 13:03] LABS: AST(SGOT) 32 U/L (<=37); Alanine Aminotransfer ALT/SGPT 46 U/L (<=46); Albumin, Serum 4.5 g/dL (3.4-4.8); Alkaline Phosphatase 65 U/L (40-129); Anion Gap 12 (5-15); BUN 12 mg/dL (4-19); BUN/Creat Ratio 13.9 RATIO (10-20); Calcium,Total 9.7 mg/dL (7.6-11.0); Carbon Dioxide 24.0 mmol/L (21.0-32.0); Chloride 100 mmol/L (98-108); Cholesterol 124 mg/dL (<=200); Globulin 2.7 g/dL (2.2-4.2); Glucose 96 mg/dL (70-99); Low Density Lipoprotein Calc. 57 mg/dL; PSA,Total - Annual Screen 1.49 ng/mL (0.02-4.00); Potassium 3.6 mmol/L (3.3-5.1); Triglycerides 120 mg/dL; Very Low Density Lipoprotein 24 mg/dL (5-40); cholesterol:hdl ratio screen 2.86
== END | disposition home or self-care (01) ==
LOC: MTLAB 09:35
PROVIDERS: PCP Family Medicine; Referring Provider Family Medicine; Visit Provider Family Medicine
DX: E03.9 Hypothyroidism, unspecified (principal); I25.10 Atherosclerotic heart disease of native coronary artery without angina pectoris; Z12.5 Encounter for screening for malignant neoplasm of prostate
CPT/HCPCS: 36415; 80053; 80061; 84153; 84439; 84443; G0103